=== PATIENT | female | born 1950 | race African-American/Black ===

== ENCOUNTER 2017-10-23 09:11 | Outpatient (CLI) | payer MEDICARE, MEDICAID | END 2017-10-23 09:12 | disposition home or self-care (01) | LOC: NS 09:11 | PROVIDERS: ATTEND Internal Medicine | DX: Z71.3 Dietary counseling and surveillance (principal); E11.9 Type 2 diabetes mellitus without complications; Z68.28 Body mass index [BMI] 28.0-28.9, adult | CPT/HCPCS: 97802 ==

== ENCOUNTER 2017-11-06 09:44 | Outpatient (CLI) | payer OTHER, MEDICAID | END 2017-11-06 09:45 | disposition home or self-care (01) | LOC: NS 09:44 | PROVIDERS: ATTEND Internal Medicine | DX: Z71.3 Dietary counseling and surveillance (principal); E11.9 Type 2 diabetes mellitus without complications; Z68.28 Body mass index [BMI] 28.0-28.9, adult; Z79.84 Long term (current) use of oral hypoglycemic drugs | CPT/HCPCS: 97803 ==

== ENCOUNTER 2018-03-15 11:53 | Outpatient (CLI) | payer MEDICARE, MEDICAID ==
--- NOTE | 2018-03-16 15:51 | Ultrasound Report ---
Reason: FOOT PAIN,CLAUDICATION Procedure Date: 03/15/2018 Accession Number: [id number] / [id number] Procedure: US - Duplex Lwr Ext Arterial Bilat CPT Code: FULL RESULT: EXAM: Bilateral Lower Extremity Arterial Doppler Ultrasound EXAM DATE: 03/15/2018 01:10 PM. CLINICAL HISTORY: FOOT Pain, claudication. COMPARISON: None. TECHNIQUE: Real-time sonographic vascular imaging was performed by the convertible sofa bedspring tester, utilizing color-flow, Doppler flow, and spectral analysis. Multiple employee representative static images were saved for review. FINDINGS: Peak systolic velocities in centimeters per second: PRECISION DYER right 94 left 74 Proximal SFA right 80 left 91 Mid SFA right 68 left 87 Distal SFA right 288 left 77 PFA right 78 left 64 Popliteal right 46 left 70 TJ right 18 left 16 BUNGY JUMP MASTER right 9 left 22 Peroneal right 45 left 39 DPA right 8 left 15 SHELLIE Right brachial 169/79. Right ankle 169/87. SHELLIE 1.0 Left brachial 160/72. Left ankle 165/80. SHELLIE 1.03 IMPRESSION: Normal ABIs Right superficial femoral artery high-grade stenosis RADIA
== END 2018-03-15 11:54 | disposition home or self-care (01) ==
LOC: DI 11:53
PROVIDERS: ATTEND Internal Medicine
DX: I70.213 Atherosclerosis of native arteries of extremities with intermittent claudication, bilateral legs (principal); M79.672 Pain in left foot
CPT/HCPCS: 93922; 93925

== ENCOUNTER 2018-05-01 10:09 | Outpatient (CLI) | payer MEDICARE, MEDICAID ==
[2018-05-01 12:36] LABS: HB2 TOTAL 13.3 g/dL; HEMOGLOBIN A1C 0.55 g/dL; HEMOGLOBIN A1C % 5.9 % (4.6-6.2)
== END 2018-05-01 10:10 | disposition home or self-care (01) ==
LOC: LAB 10:09
PROVIDERS: ATTEND Nurse Anesthetist, Certified Registered
DX: Z01.818 Encounter for other preprocedural examination (principal); G56.01 Carpal tunnel syndrome, right upper limb; I21.3 ST elevation (STEMI) myocardial infarction of unspecified site; E11.9 Type 2 diabetes mellitus without complications
CPT/HCPCS: 36415; 83036; 93005

== ENCOUNTER 2018-05-05 07:13 | Day surgery (SDC) | payer MEDICARE, MEDICAID ==
--- NOTE | 2018-05-05 07:51 | ANESTHESIA ---
Pre-Anesthesia VS, & Labs - Diagnosis B carpal tunnel syndrome - Procedure R CTR Vital Signs: Temp Pulse Resp BP Pulse Ox 37 C 71 15 180/85 H 98 05/05/18 07:25 05/05/18 07:25 05/05/18 07:25 05/05/18 07:25 05/05/18 07:25 Height 5 ft 3 in Weight (kg) 73.3 kg - NPO >8 hours - Is Patient ?: No - Lab Results Current Lab Results: Laboratory Tests 05/05/18 07:44: POC Whole Bld Glucose 107 H Lab results reviewed: Yes Home Medications and Allergies Home Medications: Ambulatory Orders Aspirin [Adult Aspirin] 81 mg PO DAILY 04/30/18 Atorvastatin Calcium [Lipitor] 80 mg PO QPM 04/30/18 Biotin 500 mcg PO DAILY 04/30/18 Cholecalciferol [Vitamin D3] 5,000 unit PO DAILY 04/30/18 Clopidogrel Bisulfate [Clopidogrel] 75 mg PO DAILY 04/30/18 Cyanocobalamin (Vitamin B-12) [Vitamin B-12] 500 mcg PO DAILY 04/30/18 Insulin NPH Hum/Reg Insulin Hm [Novolin 70-30 Flexpen] 20 unit SQ DAILY 04/30/18 Lactobacillus Acidophilus [Probiotic Acidophilus] 1 each PO DAILY 04/30/18 Lisinopril 40 mg PO BID 04/30/18 Multivitamin [Multiple Vitamins] 1 each PO DAILY 04/30/18 [place]-3/Dha/Epa/Fish Oil [Fish Oil 1,000 mg Softgel] 1 each PO DAILY 04/30/18 Pyridoxine HCl [Vitamin B-6] 100 mg PO ONCE 04/30/18 Turmeric Root Extract [Turmeric] 500 mg PO DAILY 04/30/18 Vitamin E 400 unit PO DAILY 04/30/18 metFORMIN [Glucophage] 500 mg PO DAILY 04/30/18 Aspirin [Adult Aspirin] 81 mg PO DAILY 04/30/18 Atorvastatin Calcium [Lipitor] 80 mg PO QPM 04/30/18 Biotin 500 mcg PO DAILY 04/30/18 Cholecalciferol [Vitamin D3] 5,000 unit PO DAILY 04/30/18 Clopidogrel Bisulfate [Clopidogrel] 75 mg PO DAILY 04/30/18 Cyanocobalamin (Vitamin B-12) [Vitamin B-12] 500 mcg PO DAILY 04/30/18 Insulin NPH Hum/Reg Insulin Hm [Novolin 70-30 Flexpen] 20 unit SQ DAILY 04/30/18 Lactobacillus Acidophilus [Probiotic Acidophilus] 1 each PO DAILY 04/30/18 Lisinopril 40 mg PO BID 04/30/18 Multivitamin [Multiple Vitamins] 1 each PO DAILY 04/30/18 [place]-3/Dha/Epa/Fish Oil [Fish Oil 1,000 mg Softgel] 1 each PO DAILY 04/30/18 Pyridoxine HCl [Vitamin B-6] 100 mg PO ONCE 04/30/18 Turmeric Root Extract [Turmeric] 500 mg PO DAILY 04/30/18 Vitamin E 400 unit PO DAILY 04/30/18 metFORMIN [Glucophage] 500 mg PO DAILY 04/30/18 Allergies/Adverse Reactions: Allergies Allergy/AdvReac Type Severity Reaction Status Date / Time No Known Drug Allergies Allergy Verified 04/30/18 13:23 Anes History & Medical History - Anesthetic History Anesthesia Complications: reports: No previous complications Family history of Anesthesia Complications: Denies Family history of Malignant Hyperthermia: Denies - Medical History Cardiovascular: reports: Hypertension, High cholesterol, [place], Murmur Pulmonary: reports: Shortness of breath Gastrointestinal: reports: None Urinary: reports: Nocturia Musculoskeletal: reports: None Endocrine/Autoimmune: reports: Type 2 diabetes Skin: reports: None Exam General: Alert, Oriented x3, Cooperative Mouth Openin Fingerbreadth Neck Mobility: Limited Mallampati classification: II Thyromental Distance: 4-6 cm Respiratory: Lungs clear, Normal breath sounds Cardiovascular: Regular rate Neurological: Normal speech Mental/Cognitive Status: Alert/Oriented X3 Plan Anesthesia Type: General Consent for Procedure(s) Verified and Reviewed: Yes Code Status: Attempt Resuscitation ASA classification: 3-Severe systemic disease Is this case an emergency?: No
[2018-05-05] MEDS ORDERED: BUPIVACAINE 0.25% PF 10 ML VIAL ONE (07:52)
[2018-05-05] MEDS ORDERED: LACTATED RINGERS 1,000 ML IV ONE ×2 (08:01→08:27)
[2018-05-05] MEDS ORDERED: BUPIVACAINE 0.25% PF 30 ML VIAL SUBQ ONE ×2 (08:25)
[2018-05-05] MEDS ORDERED: MIDAZOLAM 2 MG/2 ML VIAL IVP ONE (08:30)
[2018-05-05] MEDS ORDERED: DEXAMETHASONE 4 MG/ML VIAL IVP ONE (08:30)
[2018-05-05] MEDS ORDERED: ONDANSETRON 4 MG/2 ML VIAL IVP ONE (08:30)
[2018-05-05] MEDS ORDERED: KETOROLAC 30 MG/ML VIAL IVP ONE (08:30)
[2018-05-05] MEDS ORDERED: fentaNYL 100 MCG/2 ML VIAL IVP ONE (08:30)
[2018-05-05] MEDS ORDERED: LIDOCAINE-MPF 2% 5 ML VIAL IM ONE (08:30)
[2018-05-05] MEDS ORDERED: PROPOFOL 200 MG/20 ML VIAL IVP ONE (08:30)
[2018-05-05] MEDS ORDERED: ONDANSETRON 4 MG/2 ML VIAL IVP PRN (08:44)
[2018-05-05] MEDS ORDERED: HYDROcod/ACETAM 5/325 MG TABLET PO PRN (08:44)
[2018-05-05 09:59] VITALS: BP 165/87
--- NOTE | 2018-05-05 10:28 | OPERATIVE REPORT ---
DATE OF SERVICE: 05/05/2018 Physician: Elizabeth Fermin MD PREOPERATIVE DIAGNOSIS: Right carpal tunnel syndrome. POSTOPERATIVE DIAGNOSIS: Right carpal tunnel syndrome. PROCEDURE: Right carpal tunnel release. OPERATING SURGEON: Elizabeth Fermin MD ANESTHESIA: General. INDICATIONS FOR SURGERY: Patient is a 67-year-old with progressive bilateral carpal tunnel syndrome, who desires a right carpal tunnel release. She has had failure of nonoperative treatment and has a positive nerve conduction test. FINDINGS AT SURGERY: Patient's exposed median nerve revealed constriction through the carpal tunnel. Otherwise, there was no other abnormality in the tunnel. DESCRIPTION OF OPERATIVE PROCEDURE: The patient was taken to the operating room, given a general anesthetic. Her hand and arm were sterilely prepped and draped in standard fashion. The patient's hand had presurgically been marked, and a surgical timeout was held, after which the carpal tunnel was infiltrated with a combination of 1% lidocaine with epinephrine and 0.25% Marcaine, using approximately a total volume 8 mL. Once this was adequately anesthetized and the skin blanching somewhat, an incision was made 1 inch in length in the palm in line with the third webspace, with the radial border of the ring finger. This incision was taken through skin and subcutaneous tissue, dissecting down to the transverse carpal ligament, which was divided in line with the incision and the length of the division extending from the distal flexion crease of the wrist to the superficial vascular arch in the palm. The contents of the tunnel were examined and the constriction of the nerve noted. The area was flushed and irrigated and closed with 4-0 nylon interrupted. Sterile dressings were applied to the palm, and the patient was taken to the recovery room in stable condition. ESTIMATED BLOOD LOSS: Minimal. COMPLICATIONS: None. COUNTS: Sponge and needle counts correct. TD: 05/05/2018 09:25 [facility]
== END 2018-05-05 07:14 | disposition home or self-care (01) ==
LOC: SDS 07:13
PROVIDERS: ATTEND Orthopaedic Surgery
PROC: 01N50ZZ Release Median Nerve, Open Approach (ICD-10-PCS; principal; 2018-05-05 08:30)
DX: G56.03 Carpal tunnel syndrome, bilateral upper limbs (principal); E11.9 Type 2 diabetes mellitus without complications; I10 Essential (primary) hypertension; I69.398 Other sequelae of cerebral infarction; R20.2 Paresthesia of skin; I25.2 Old myocardial infarction; Z87.891 Personal history of nicotine dependence; Z79.82 Long term (current) use of aspirin; Z79.899 Other long term (current) drug therapy; Z79.4 Long term (current) use of insulin
CPT/HCPCS: 64721; J7120

== ENCOUNTER 2018-06-24 07:52 | Emergency (ER) | payer MEDICARE, MEDICAID ==
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
[2018-06-24 08:23] LABS: BASOPHILS # (AUTO) 0.1 10^3/uL (0.0-0.1); BASOPHILS % (AUTO) 0.7 %; EOSINOPHILS # (AUTO) 0.3 10^3/uL (0.0-0.7); EOSINOPHILS % (AUTO) 3.1 %; HGB - HEMOGLOBIN 12.5 g/dL (12.0-16.0); LYMPHOCYTES # (AUTO) 1.6 10^3/uL (1.5-3.5); LYMPHOCYTES % (AUTO) 16.3 %; MEAN CORPUSCULAR HEMOGLOBIN 29.4 pg (27.0-31.0); MEAN CORPUSCULAR VOLUME 89.2 fL (81.0-99.0); MONOCYTES # (AUTO) 0.5 10^3/uL (0.0-1.0); MONOCYTES % (AUTO) 4.5 %; NEUTROPHILS # (AUTO) 7.6 10^3/uL (1.5-6.6); NEUTROPHILS % (AUTO) 75.4 %; PLT - PLATELET COUNT 251 10^3/uL (130-450); RED BLOOD COUNT 4.24 10^6/uL (4.20-5.40); RED CELL DISTRIBUTION WIDTH 14.3 % (12.0-15.0); WHITE BLOOD COUNT 10.1 x10^3/uL (4.8-10.8)
[2018-06-24] MEDS ORDERED: SODIUM CHLORIDE 0.9% 1,000 ML IV ONE ×2 (08:29→09:16)
--- NOTE | 2018-06-24 08:30 | CT Report ---
Reason: ALOC Procedure Date: 06/24/2018 Accession Number: [id number] / [id number] Procedure: CT - HEAD WO CPT Code: FULL RESULT: EXAM: CT HEAD EXAM DATE: 06/24/2018 08:21 AM. CLINICAL HISTORY: Altered level of consciousness. COMPARISON: None. TECHNIQUE: Multiaxial CT images were obtained from the foramen magnum to the vertex. Reformats: Sagittal and coronal. IV contrast: None. In accordance with CT protocol optimization, one or more of the following dose reduction techniques were utilized for this exam: automated exposure control, adjustment of mA and/or KV based on patient size, or use of iterative reconstructive technique. FINDINGS: Parenchyma: No intraparenchymal hemorrhage. No evidence of mass, midline shift, or CT findings of acute infarction. Piedra-white differentiation is distinct. Diffuse chronic microangiopathic white matter changes are evident. Extraaxial Spaces: Normal for age. No subdural or epidural collections identified. Ventricles: The ventricles and cortical sulci are enlarged, consistent with age-related tissue loss. Sinuses and orbits: Imaged paranasal sinuses, orbits, and mastoids show no significant abnormality. Bones: No evidence of fracture or calvarial defect. Other: None. IMPRESSION: Generalized age-related cortical atrophic changes without evidence of acute intracranial abnormality. RAD[facility]
--- NOTE | 2018-06-24 08:37 | XRAY Report ---
Reason: chest pain Procedure Date: 06/24/2018 Accession Number: [id number] / [id number] Procedure: XR - Chest 1 View X-Ray CPT Code: 76668 FULL RESULT: EXAM: CHEST RADIOGRAPHY EXAM DATE: 06/24/2018 08:30 AM. CLINICAL HISTORY: Chest pain. COMPARISON: None. TECHNIQUE: 1 view. FINDINGS: Lungs/Pleura: Mildly elongated left basilar opacity. No pleural effusion. No pneumothorax. Mediastinum: Within exam limitations, the cardiomediastinal contour is normal. Other: Bilateral acromioclavicular joint degenerative changes with joint space narrowing and inferior marginal osteophytes. IMPRESSION: 1. Mild left basilar atelectasis. RADIA
[2018-06-24 08:40] LABS: ALBUMIN/GLOBULIN RATIO 1.3 (1.0-2.2); BILIRUBIN,TOTAL 0.5 mg/dL (0.2-1.0); CALCIUM 9.4 mg/dL (8.5-10.3); CREATININE 0.8 mg/dL (0.4-1.0)
[2018-06-24 09:29] LABS: BILIRUBIN,URINE NEGATIVE (NEGATIVE); GLUCOSE, URINE (UA) NEGATIVE (NEGATIVE); KETONES,URINE (UA) NEGATIVE (NEGATIVE); LEUKOCYTE ESTERASE, URINE NEGATIVE (NEGATIVE); NITRITE,URINE POSITIVE (NEGATIVE); OCCULT BLOOD,URINE SMALL (NEGATIVE); PH,URINE 5.5 PH (5.0-7.5); PROTEIN,URINE NEGATIVE (NEGATIVE); UROBILINOGEN,URINE 0.2 (NORMAL) E.U./dL (NORMAL)
[2018-06-24 09:43] LABS: CLARITY,URINE HAZY (CLEAR)
[2018-06-24 09:55] LABS: BACTERIA,URINE Moderate /HPF (None Seen); RBC,URINE 0-5 /HPF (0-5); SQUAMOUS EPITHELIAL CELL,UR FEW Squamous (<= Few)
[2018-06-24] MEDS ORDERED: cephALEXin 250 MG CAPSULE PO STA (10:00)
[2018-06-24 10:13] VITALS: BP 213/94
== END 2018-06-24 10:24 | disposition home or self-care (01) ==
LOC: ED 07:52
DX: E86.0 Dehydration (principal); N30.00 Acute cystitis without hematuria; R94.31 Abnormal electrocardiogram [ECG] [EKG]; E11.9 Type 2 diabetes mellitus without complications; Z79.4 Long term (current) use of insulin; E78.00 Pure hypercholesterolemia, unspecified; I10 Essential (primary) hypertension; I25.2 Old myocardial infarction; Z79.82 Long term (current) use of aspirin
CPT/HCPCS: 36415; 70450; 71045; 80053; 81001; 83690; 84484; 85025; 87086; 93005; 96360; 99284; A9270; 81003; 87077; 87181

== ENCOUNTER 2018-07-06 11:17 | Outpatient (CLI) | payer OTHER, MEDICARE, MEDICAID ==
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
== END 2018-07-06 11:18 | disposition home or self-care (01) ==
LOC: DI 11:17
PROVIDERS: ATTEND Chiropractor
DX: M47.9 Spondylosis, unspecified (principal); M43.13 Spondylolisthesis, cervicothoracic region
CPT/HCPCS: 72040; 72070; 72100

== ENCOUNTER 2018-07-17 10:32 | Outpatient (CLI) | payer MEDICARE, MEDICAID ==
--- NOTE | 2018-07-31 09:36 | Mammography Report ---
Reason: SCREENING MAMMO Procedure Date: 07/17/2018 Accession Number: [id number] / [id number] Procedure: MGN - Screening Mammo Dig Bilat CPT Code: FULL RESULT: EXAM: Screening Mammo Dig Bilat DATE: 07/17/2018 10:57 AM CLINICAL HISTORY: Routine screening TECHNIQUE: (B) - Bilateral CC and MLO views were obtained. COMPARISON: None PARENCHYMAL PATTERN: (A) - The breasts demonstrate scattered fibroglandular densities bilaterally. FINDINGS: Negative left breast. There are no suspicious masses, calcifications, or areas of distortion. Right retroareolar 1 cm nodule 1 cm posterior to the nipple. Tubular structure associated with large calcification 9:00 position 8 cm from the nipple for which ultrasound is suggested. No suspicious calcifications or architectural distortion right breast. IMPRESSION: Incomplete examination. BI-RADS category 0. Needs right breast ultrasound. Negative left breast. RECOMMENDATION: (ADDUS) - Targeted ultrasound recommended. Right breast retroareolar 1 cm from the nipple and 9:00 position 8 cm from the nipple. BI-RADS CATEGORY: (0) - Incomplete Examination - need additional evaluation. STANDARD QUALIFYING STATEMENTS: 1. This examination was not reviewed with the aid of Computer-Aided Detection (CAD). 2. A negative or benign imaging report should not preclude biopsy if clinically suspicious findings are present. 3. Dense breasts may obscure an underlying neoplasm. 4. This examination was reviewed without the aid of 3D breast imaging (tomosynthesis).
== END 2018-07-17 10:33 | disposition home or self-care (01) ==
LOC: DI.N 10:32
PROVIDERS: ATTEND Internal Medicine
DX: Z12.31 Encounter for screening mammogram for malignant neoplasm of breast (principal); R92.8 Other abnormal and inconclusive findings on diagnostic imaging of breast
CPT/HCPCS: 77067

== ENCOUNTER 2018-08-14 09:16 | Outpatient (CLI) | payer MEDICARE, MEDICAID ==
--- NOTE | 2018-08-14 09:56 | CT Report ---
Reason: MULTIPLE PULMONARY NODULES Procedure Date: 08/14/2018 Accession Number: [id number] / [id number] Procedure: CT - CHEST WO CPT Code: FULL RESULT: EXAM: CT CHEST EXAM DATE: 08/14/2018 09:27 AM. CLINICAL HISTORY: MULTIPLE PULMONARY NODULES. COMPARISONS: Chest x-ray 06/24/2018. TECHNIQUE: Routine helical CT imaging was performed through the chest. IV contrast: None. Reconstructions: Coronal and sagittal. In accordance with CT protocol optimization, one or more of the following dose reduction techniques were utilized for this exam: automated exposure control, adjustment of mA and/or KV based on patient size, or use of iterative reconstructive technique. FINDINGS: Lungs/Pleura: No nodules, bronchial thickening, consolidation, or edema. Pulmonary vasculature is normal. No pericardial or pleural effusion. No pneumothorax. Mediastinum: Normal. No adenopathy or masses. The heart and great vessels are normal. Bones: Unremarkable. Visualized Abdomen: Unremarkable. Other: None. IMPRESSION: Normal chest CT. RAD[facility]
== END 2018-08-14 09:17 | disposition home or self-care (01) ==
LOC: DI 09:16
PROVIDERS: ATTEND Internal Medicine
DX: R91.8 Other nonspecific abnormal finding of lung field (principal)
CPT/HCPCS: 71250

== ENCOUNTER 2019-01-11 11:28 | Outpatient (CLI) | payer MEDICARE, MEDICAID ==
[2019-01-11 12:34] LABS: CALCIUM 9.5 mg/dL (8.5-10.3); CREATININE 0.6 mg/dL (0.4-1.0)
[2019-01-11 13:23] LABS: HB2 TOTAL 12.5 g/dL; HEMOGLOBIN A1C 0.52 g/dL
== END 2019-01-11 11:29 | disposition home or self-care (01) ==
LOC: LAB 11:28
PROVIDERS: ATTEND Internal Medicine
DX: E11.9 Type 2 diabetes mellitus without complications (principal); R20.2 Paresthesia of skin; I10 Essential (primary) hypertension; E78.5 Hyperlipidemia, unspecified; Z79.899 Other long term (current) drug therapy
CPT/HCPCS: 36415; 80048; 82306; 83036; 84207

== ENCOUNTER 2019-03-12 10:44 | Outpatient (CLI) | payer MEDICARE, MEDICAID ==
--- NOTE | 2019-03-12 13:23 | XRAY Report ---
Reason: COUGH,HEMOPTYSIS Procedure Date: 03/12/2019 Accession Number: [id number] / [id number] Procedure: XR - Chest 2 View X-Ray CPT Code: 39408 Final Report FULL RESULT: EXAM: CHEST RADIOGRAPHY EXAM DATE: 03/12/2019 10:57 AM. CLINICAL HISTORY: COUGH,HEMOPTYSIS. COMPARISON: THORACIC SPINE 2 VIEW 07/06/2018 11:30 AM. TECHNIQUE: 2 views. FINDINGS: Lungs/Pleura: No focal opacities evident. No pleural effusion. No pneumothorax. Normal volumes. Mediastinum: Heart and mediastinal contours are unremarkable. Mild ectatic aorta Other: DJD spine IMPRESSION: No active cardiopulmonary disease RAD[facility]
== END 2019-03-12 10:45 | disposition home or self-care (01) ==
LOC: DI 10:44
PROVIDERS: ATTEND Internal Medicine
DX: R04.2 Hemoptysis (principal)
CPT/HCPCS: 71046

== ENCOUNTER 2019-09-24 10:15 | Outpatient (CLI) | payer MEDICARE, MEDICAID ==
[2019-09-24 10:37] LABS: BASOPHILS # (AUTO) 0.1 10^3/uL (0.0-0.1); BASOPHILS % (AUTO) 0.6 %; EOSINOPHILS # (AUTO) 0.1 10^3/uL (0.0-0.7); EOSINOPHILS % (AUTO) 1.6 %; HGB - HEMOGLOBIN 12.7 g/dL (12.0-16.0); LYMPHOCYTES # (AUTO) 2.2 10^3/uL (1.5-3.5); LYMPHOCYTES % (AUTO) 24.9 %; MEAN CORPUSCULAR HEMOGLOBIN 28.7 pg (27.0-31.0); MEAN CORPUSCULAR HGB CONC 31.2 g/dL (32.0-36.0); MEAN CORPUSCULAR VOLUME 91.9 fL (81.0-99.0); MEAN PLATELET VOLUME 9.5 fL (7.9-10.8); MONOCYTES # (AUTO) 0.4 10^3/uL (0.0-1.0); MONOCYTES % (AUTO) 4.9 %; NEUTROPHILS # (AUTO) 5.8 10^3/uL (1.5-6.6); NEUTROPHILS % (AUTO) 67.8 %; PLT - PLATELET COUNT 315 10^3/uL (130-450); RED BLOOD COUNT 4.43 10^6/uL (4.20-5.40); RED CELL DISTRIBUTION WIDTH 13.2 % (12.0-15.0); WHITE BLOOD COUNT 8.6 x10^3/uL (4.8-10.8)
[2019-09-24 10:56] LABS: CREATININE,URINE 93.3 mg/dL; MICROALBUM/CREATININE RATIO,UR 13.9 ug/mg (<30.0); MICROALBUMIN,URINE 1.3 mg/dL (0-300.0)
[2019-09-24 10:59] LABS: ALBUMIN 4.3 g/dL (3.2-5.5); ALBUMIN/GLOBULIN RATIO 1.3 (1.0-2.2); ALKALINE PHOSPHATASE 54 IU/L (42-121); ALT ALANINE AMINOTRANSFERASE 24 IU/L (10-60); AST ASPARTATE AMINOTRANSFERASE 22 IU/L (10-42); BILIRUBIN,TOTAL 0.9 mg/dL (0.2-1.0); BUN - BLOOD UREA NITROGEN 15 mg/dL (6-20); CALCIUM 9.5 mg/dL (8.5-10.3); CARBON DIOXIDE - CO2 29 mmol/L (21-32); CHLORIDE 104 mmol/L (101-111); CHOL/HDL RATIO 3.3 (<4.4); CHOLESTEROL 265 mg/dL; CREATININE 0.8 mg/dL (0.4-1.0); GLUCOSE 67 mg/dL (70-100); HDL CHOLESTEROL 81 mg/dL; LDL CHOLESTEROL,CALCULATED 162 mg/dL; SODIUM 140 mmol/L (135-145); TOTAL PROTEIN 7.6 g/dL (6.7-8.2); VLDL CHOLESTEROL 22 mg/dL
[2019-09-24 11:08] LABS: THYROID STIMULATING HORMONE 0.84 uIU/mL (0.34-5.60)
[2019-09-24 12:25] LABS: HB2 TOTAL 13.6 g/dL; HEMOGLOBIN A1C 0.51 g/dL; HEMOGLOBIN A1C % 5.6 % (4.6-6.2)
== END 2019-09-24 10:16 | disposition home or self-care (01) ==
LOC: LAB 10:15
PROVIDERS: ATTEND Internal Medicine
DX: G64 Other disorders of peripheral nervous system (principal); Z13.6 Encounter for screening for cardiovascular disorders; Z79.899 Other long term (current) drug therapy; I10 Essential (primary) hypertension; I63.9 Cerebral infarction, unspecified; G56.00 Carpal tunnel syndrome, unspecified upper limb; E11.9 Type 2 diabetes mellitus without complications; E78.5 Hyperlipidemia, unspecified; R10.9 Unspecified abdominal pain; I77.9 Disorder of arteries and arterioles, unspecified
CPT/HCPCS: 36415; 80053; 80061; 81599; 82043; 82306; 82570; 82607; 83036; 83721; 84443; 85025

== ENCOUNTER 2020-03-09 14:17 | Outpatient (CLI) | payer MEDICARE, MEDICAID ==
[2020-03-09 14:51] LABS: BASOPHILS # (AUTO) 0.1 10^3/uL (0.0-0.1); BASOPHILS % (AUTO) 0.7 %; EOSINOPHILS # (AUTO) 0.2 10^3/uL (0.0-0.7); EOSINOPHILS % (AUTO) 2.8 %; LYMPHOCYTES # (AUTO) 1.6 10^3/uL (1.5-3.5); LYMPHOCYTES % (AUTO) 18.4 %; MEAN CORPUSCULAR HEMOGLOBIN 29.1 pg (27.0-31.0); MEAN CORPUSCULAR HGB CONC 32.3 g/dL (32.0-36.0); MEAN CORPUSCULAR VOLUME 89.9 fL (81.0-99.0); MEAN PLATELET VOLUME 9.6 fL (7.9-10.8); MONOCYTES # (AUTO) 0.4 10^3/uL (0.0-1.0); MONOCYTES % (AUTO) 4.6 %; NEUTROPHILS # (AUTO) 6.3 10^3/uL (1.5-6.6); NEUTROPHILS % (AUTO) 73.3 %; PLT - PLATELET COUNT 279 10^3/uL (130-450); RED BLOOD COUNT 4.47 10^6/uL (4.20-5.40); RED CELL DISTRIBUTION WIDTH 13.5 % (12.0-15.0); WHITE BLOOD COUNT 8.6 x10^3/uL (4.8-10.8)
--- NOTE | 2020-03-09 14:58 | XRAY Report ---
PROCEDURE: Ankle 3 View LT INDICATIONS: LAB DRAW, LEFT ANKLE & HEEL PAIN TECHNIQUE: 3 views of the ankle were acquired. COMPARISON: None. FINDINGS: Bones: No significant degenerative changes. No fractures or dislocations. Ankle mortise is normally aligned. No suspicious bony lesions. Small plantar calcaneal enthesophyte. Soft tissues: No tibiotalar joint effusion. Achilles tendon appears normal. IMPRESSION: Small plantar calcaneal enthesophyte. Correlate for potential plantar fasciitis, low lik elihood given the lack of associated soft tissue swelling. Reviewed by: Hugo Jefferson MD on 03/09/2020 2:57 PM PST Approved by: Hugo Jefferson MD on 03/09/2020 2:57 PM PST Station ID: [id number]
[2020-03-09 15:04] LABS: CALCIUM 9.5 mg/dL (8.5-10.3); CREATININE 0.7 mg/dL (0.4-1.0)
[2020-03-09 18:59] LABS: HEMOGLOBIN A1c% 5.9 % (4.27-6.07)
== END 2020-03-09 14:18 | disposition home or self-care (01) ==
LOC: LAB 14:17 → DI 14:18
PROVIDERS: ATTEND Internal Medicine
DX: M25.572 Pain in left ankle and joints of left foot (principal); M77.32 Calcaneal spur, left foot; R06.09 Other forms of dyspnea; E11.9 Type 2 diabetes mellitus without complications; Z79.899 Other long term (current) drug therapy
CPT/HCPCS: 36415; 80048; 83036; 83880; 85025

== ENCOUNTER 2020-09-21 11:43 | Outpatient (CLI) | payer MEDICARE, MEDICAID ==
[2020-09-21 12:04] LABS: BASOPHILS # (AUTO) 0.1 10^3/uL (0.0-0.1); BASOPHILS % (AUTO) 0.7 %; EOSINOPHILS # (AUTO) 0.2 10^3/uL (0.0-0.7); EOSINOPHILS % (AUTO) 1.7 %; HCT - HEMATOCRIT 39.4 % (37.0-47.0); HGB - HEMOGLOBIN 12.7 g/dL (12.0-16.0); LYMPHOCYTES # (AUTO) 2.2 10^3/uL (1.5-3.5); LYMPHOCYTES % (AUTO) 24.7 %; MEAN CORPUSCULAR HEMOGLOBIN 29.1 pg (27.0-31.0); MEAN CORPUSCULAR HGB CONC 32.2 g/dL (32.0-36.0); MEAN CORPUSCULAR VOLUME 90.4 fL (81.0-99.0); MEAN PLATELET VOLUME 9.6 fL (7.9-10.8); MONOCYTES # (AUTO) 0.5 10^3/uL (0.0-1.0); MONOCYTES % (AUTO) 6.2 %; NEUTROPHILS # (AUTO) 5.8 10^3/uL (1.5-6.6); NEUTROPHILS % (AUTO) 66.5 %; PLT - PLATELET COUNT 273 10^3/uL (130-450); RED BLOOD COUNT 4.36 10^6/uL (4.20-5.40); RED CELL DISTRIBUTION WIDTH 13.5 % (12.0-15.0); WHITE BLOOD COUNT 8.7 x10^3/uL (4.8-10.8)
[2020-09-21 12:32] LABS: ALBUMIN 4.6 g/dL (3.2-5.5); ALBUMIN/GLOBULIN RATIO 1.4 (1.0-2.2); ALKALINE PHOSPHATASE 55 IU/L (42-121); ALT ALANINE AMINOTRANSFERASE 23 IU/L (10-60); AST ASPARTATE AMINOTRANSFERASE 21 IU/L (10-42); BILIRUBIN,TOTAL 0.7 mg/dL (0.2-1.0); BUN - BLOOD UREA NITROGEN 15 mg/dL (6-20); CARBON DIOXIDE - CO2 28 mmol/L (21-32); CHLORIDE 106 mmol/L (101-111); CHOLESTEROL 290 mg/dL; CREATININE 0.6 mg/dL (0.4-1.0); GFR - MDRD 120 (>89); GLUCOSE 63 mg/dL (70-100); HDL CHOLESTEROL 73 mg/dL; LDL CHOLESTEROL,CALCULATED 195 mg/dL; LDL/HDL RATIO 2.7 (<4.4); POTASSIUM 3.5 mmol/L (3.5-5.0); SODIUM 145 mmol/L (135-145); TRIGLYCERIDES 109 mg/dL; VLDL CHOLESTEROL 22 mg/dL
[2020-09-21 12:33] LABS: THYROID STIMULATING HORMONE 0.54 uIU/mL (0.34-5.60)
[2020-09-21 13:14] LABS: ESTIMATED AVERAGE GLUCOSE 120 mg/dL (70-100); HEMOGLOBIN A1c% 5.8 % (4.27-6.07)
== END 2020-09-21 11:44 | disposition home or self-care (01) ==
LOC: LAB 11:43
PROVIDERS: ATTEND Internal Medicine
DX: R53.83 Other fatigue (principal); Z79.899 Other long term (current) drug therapy; I10 Essential (primary) hypertension; E11.9 Type 2 diabetes mellitus without complications; E78.5 Hyperlipidemia, unspecified; Z13.6 Encounter for screening for cardiovascular disorders; K62.5 Hemorrhage of anus and rectum; I77.9 Disorder of arteries and arterioles, unspecified; I63.9 Cerebral infarction, unspecified
CPT/HCPCS: 36415; 80053; 80061; 82306; 82607; 83036; 83721; 84443; 85025

== ENCOUNTER 2020-10-25 08:24 | Outpatient (CLI) | payer MEDICARE, MEDICAID ==
--- NOTE | 2020-10-25 12:23 | DEXA Report ---
PROCEDURE: Dexa Spine and/or Hip INDICATIONS: POST MENOPAUSAL TECHNIQUE: Dual energy x-ray absorptiometry (DXA) was performed on a [email or web address] System. Regions measur ed are the AP Spine, femoral neck, and if needed forearm. COMPARISON: None. FINDINGS: Lumbar Spine: Bone Mineral Density 1.616 g/cm/cm,T score 3.6, normal Left Hip: Bone Mineral Density 1.078 g/cm/cm,T score 0.6, normal Left Femoral Neck: Bone Mineral Density 0.949 g/cm/cm, T score -0.6, normal (T score greater or equal to -1.0: NORMAL) (T score from -1.1 to -2.4: OSTEOPENIA) (T score less than or equal to -2.5 to: OSTEOPOROSIS) Impression: Normal bone mineral density. Patients with diagnosis of osteoporosis or osteopenia should have regular bone mineral density assess ment. For those eligible for Medicare, routine testing is allowed once every 2 years. Testing frequ ency can be increased for patients who have rapidly progressing disease or for those who are receivin g medical therapy to restore bone mass. Reviewed by: Ara Salcedo MD on 10/25/2020 12:21 PM PDT Approved by: Ara Salcedo MD on 10/25/2020 12:21 PM PDT Station ID: [id number]
== END 2020-10-25 08:25 | disposition home or self-care (01) ==
LOC: DI 08:24
PROVIDERS: ATTEND Internal Medicine
DX: Z78.0 Asymptomatic menopausal state (principal)

== ENCOUNTER 2020-10-25 08:25 | Outpatient (CLI) | payer MEDICARE, MEDICAID ==
--- NOTE | 2020-10-26 13:25 | Ultrasound Report ---
LIMITED ULTRASOUND OF RIGHT BREAST: 10/25/2020 CLINICAL: Patient returns today to evaluate an asymmetries in the right breast. Comparison is made to exams dated: 10/25/2020 mammogram, 07/17/2018 mammogram - [facility], 07/07/2015 ultrasound, and 06/19/2015 mammogram - [facility]. Color flow and real-time ultrasound of the right breast 7-9 o'clock, and retroareolar regions were pe rformed. Piedra scale images of the real-time examination were reviewed. There are multiple dilated ducts in the right breast central to the nipple in the retroareolar region . These dilated ducts display no posterior acoustic shadowing or enhancement. Color flow imaging de monstrates that there is no increase in vascularity. There also is a 0.3 cm round cyst with a smooth internal wall in the right breast at 9 o'clock [employer] ior depth 9 cm from the nipple. This round cyst is hypoechoic with an abrupt boundary and no posteri or acoustic shadowing or enhancement. Additionally, there is a 0.8 cm oval mass in the right breast at 7 o'clock posterior depth 8 cm from the nipple. This oval mass is hypoechoic with fatty hilum and no posterior acoustic shadowing or enh ancement. IMPRESSION: PROBABLY BENIGN The multiple dilated ducts in the right breast central to the nipple in the retroareolar region most likely are duct ectasia and are probably benign. A follow-up ultrasound in 6 months is recommended. The 0.3 cm round cyst in the right breast at 9 o'clock posterior depth is probably benign. A follow- up ultrasound in 6 months is recommended. The 0.8 cm oval mass in the right breast at 7 o'clock posterior depth most likely is a lymph node or a fibroadenoma and is probably benign. A follow-up ultrasound in 6 months is recommended. A follow-up ultrasound in 6 months is recommended to demonstrate stability. This exam was interpreted at Station ID: [id number]. Electronically Signed By: Hugo Jefferson M.D., jr/joshua:10/25/2020 10:28:37 Ultrasound BI-RADS: 3 Probably benign BI-RADS CATEGORY: (3) - 3 Ultrasound [id number] 6 month follow-up LATERALITY: (B)
--- NOTE | 2020-10-26 13:25 | Mammography Report ---
BILATERAL DIGITAL DIAGNOSTIC MAMMOGRAM 3D/2D: 10/25/2020 CLINICAL: Patient returns for sonographic evaluation of right breast mass. Comparison is made to exams dated: 07/17/2018 mammogram - [facility], 07/07/2015 [facility], and 06/19/2015 mammogram - [facility] The tissue of both breasts is predomin antly fatty. There are small asymmetries in the right breast central to the nipple in the retroareolar region with an associated, unchanged from prior studies and likely representing dilated ducts although this is n ot definitive. There also is a 0.3 cm focal asymmetry in the right breast at 7 o'clock posterior depth 9 cm from the nipple, likely a cyst or lymph node. Additionally, there is a 0.8 cm mass in the right breast at 8 o'clock posterior depth 8 cm from the n ipple, likely a lymph node or fibroadenoma. No other significant masses, calcifications, or other findings are seen in either breast. IMPRESSION: INCOMPLETE: NEEDS ADDITIONAL IMAGING EVALUATION Focal asymmetries in the retroareolar region and two masses/focal asymmetries in the lower outer quad rant. These are stable from remote exams but further evaluation is recommended and will be performed following this exam. This exam was interpreted at Station ID: [id number]. NOTE: For mammograms, a report in lay terms will be sent to the patient. Approximately 15% of breast malignancies will not be visualized mammographically. In the management of a palpable breast mass, a negative mammogram must not discourage biopsy of a clinically suspicious lesion. Electronically Signed By: Hugo Jefferson M.D. jr/:10/25/2020 10:31:23 ACR BI-RADS Category 0: Incomplete 3340F PARENCHYMAL PATTERN: (F) - The breast(s) demonstrate(s) diffuse fatty replacement. BI-RADS CATEGORY: (0) - 0 Ultrasound [id number] Immediate follow-up LATERALITY: (B)
== END 2020-10-25 08:26 | disposition home or self-care (01) ==
LOC: DI 08:25
PROVIDERS: ATTEND Internal Medicine
DX: N60.01 Solitary cyst of right breast (principal); N63.13 Unspecified lump in the right breast, lower outer quadrant; Z78.0 Asymptomatic menopausal state

== ENCOUNTER 2020-11-16 13:41 | Outpatient (CLI) | payer MEDICARE, MEDICAID ==
--- NOTE | 2020-11-16 17:19 | Ultrasound Report ---
PROCEDURE: Ext Limited Non Vascular INDICATIONS: RT LOWER LEG PAINFUL LUMP TECHNIQUE: Real-time scanning was performed of the right lateral ankle, with image documentation. COMPARISON: None. FINDINGS: Multiple grayscale and color Doppler images of the lateral aspect of the right ankle were acquired at the patient directed area of palpable concern. Within the lateral aspect of the right ank le approximately 7 cm proximal to the lateral malleolus, there is a wider than tall hypoechoic lesion measuring 3.0 x 0.4 x 2.4 cm. It is heterogeneously hypoechoic without internal vascularity. There i s overlying subcutaneous edema. This hypoechoic lesion is parallel to the long axis of the lower leg. It is seen immediately superficial to the fascial layer of the underlying musculature. The lateral a nkle musculature appear normal in sonographic appearance. IMPRESSION: [place], wider than tall hypoechoic mass over the lateral aspect of the right ankle with overlying sof t tissue edema measures 3.0 x 0.4 x 2.4 cm. It is avascular. This may represent a possible hematoma o r other complicated fluid collection. Avascular mass not excluded. Findings are nonspecific and diffe rential would include both benign and malignant etiologies. Recommend clinical correlation/follow-up and repeat imaging as needed. Reviewed by: Yohan Cordoba MD on 11/16/2020 5:18 PM PDT Approved by: Yohan Cordoba MD on 11/16/2020 5:18 PM PDT Station ID: [id number]
== END 2020-11-16 13:42 | disposition home or self-care (01) ==
LOC: DI 13:41
PROVIDERS: ATTEND Internal Medicine
DX: R22.40 Localized swelling, mass and lump, unspecified lower limb (principal)

== ENCOUNTER 2020-11-30 10:59 | Outpatient (CLI) | payer MEDICARE, MEDICAID ==
[2020-11-30 11:23] LABS: CREATININE 0.7 mg/dL (0.4-1.0)
[2020-11-30] MEDS ORDERED: IOVERSOL 320 100 ML VIAL IVP ONE ×2 (11:52→15:00)
--- NOTE | 2020-11-30 17:48 | CT Report ---
PROCEDURE: LOWER EXTREMITY W - RT INDICATIONS: RIGHT ANKLE MASS TECHNIQUE: [address] images of right ankle and hindfoot were obtained after IV contrast infusion. Coronal and sagittal reformats were obtained and reviewed. COMPARISON: Ultrasound of right ankle dated 11/16/2020 FINDINGS: Bones and joints: There is no fracture or dislocation. Mild ankle and hindfoot joint osteoarthritic changes are seen. N o suspicious intraosseous lesion. Ankle mortise is congruent. Small plantar and dorsal calcaneal enth esophytes are seen. Soft tissues: At patient's reported area of palpable lump along posterior lateral aspect of mid lower leg, there is a elongated hypodense area within soft tissue superficial to the adjacent peroneus muscle and measur es approximately 1.4 x 0.4 x 1.8 cm in size. Previous ultrasound evaluation shows 3 x 0.4 x 2.4 cm co llection in this area. Mild surrounding fat stranding is seen. No underlying muscle involvement. No o ther soft tissue mass or fluid collection is seen. There is no internal or peripheral contrast enhanc ement associated with this collection. No abnormal intramuscular enhancement is seen. IMPRESSION: 1. 1.4 x 0.4 x 1.8 cm elongated collection within soft tissue along posterior lateral aspect of mid l ower leg superficial to the peroneus muscles decreased in size since previous ultrasound study and sh ow no internal or peripheral contrast enhancement. Finding is most consistent with resolving hematoma in this area. Continued clinical and sonographic follow-up is recommended. 2. No area of abnormal soft tissue enhancement. 3. No suspicious intraosseous lesion. Right ankle and hindfoot joint osteoarthritis. No fracture or d islocation. Reviewed by: Miguelito Darden MD on 11/30/2020 5:47 PM PDT Approved by: Miguelito Darden MD on 11/30/2020 5:47 PM PDT Station ID: [id number]
== END 2020-11-30 11:00 | disposition home or self-care (01) ==
LOC: LAB 10:59
PROVIDERS: ATTEND Internal Medicine
DX: Z79.899 Other long term (current) drug therapy (principal); R93.6 Abnormal findings on diagnostic imaging of limbs; R93.89 Abnormal findings on diagnostic imaging of other specified body structures; M19.071 Primary osteoarthritis, right ankle and foot
CPT/HCPCS: 36415; 73701; 82565; Q9967

== ENCOUNTER 2021-01-30 06:32 | Observation (INO) | payer MEDICARE, MEDICAID ==
[2021-01-30] MEDS ORDERED: LACTATED RINGERS 1,000 ML IV ONE ×2 (06:35→08:39)
[2021-01-30] MEDS ORDERED: PROPOFOL 500 MG/50 ML 500 MG/50 ML VIAL ONE (07:10)
[2021-01-30] MEDS ORDERED: LIDOCAINE-MPF 2% 5 ML VIAL ONE (07:10)
--- NOTE | 2021-01-30 07:23 | ANESTHESIA ---
Pre-Anesthesia VS, & Labs - Diagnosis rectal bleeding - Procedure colonoscopy Vital Signs: Temp Pulse Resp BP Pulse Ox 36.2 C L 82 18 181/83 H 95 01/30/21 06:36 01/30/21 06:36 01/30/21 06:36 01/30/21 06:36 01/30/21 06:36 Height: 5 ft 2 in Weight (kg): 74 kg Body Mass Index: 29.8 BMI Classification: Overweight - NPO >8 hours - Is Patient ?: No - Lab Results Current Lab Results: Laboratory Tests 01/30/21 06:55: POC Whole Bld Glucose 111 H Home Medications and Allergies Aspirin [Adult Aspirin] 81 mg PO DAILY 04/30/18 Atorvastatin Calcium [Lipitor] 80 mg PO QPM 04/30/18 Biotin 500 mcg PO DAILY 04/30/18 Cholecalciferol [Vitamin D3] 5,000 unit PO DAILY 04/30/18 Clopidogrel Bisulfate [Clopidogrel] 75 mg PO DAILY 04/30/18 Cyanocobalamin (Vitamin B-12) [Vitamin B-12] 500 mcg PO DAILY 04/30/18 Insulin NPH Hum/Reg Insulin Hm [Novolin 70-30 Flexpen] 20 unit SQ DAILY 04/30/18 Lactobacillus Acidophilus [Probiotic Acidophilus] 1 each PO DAILY 04/30/18 Multivitamin [Multiple Vitamins] 1 each PO DAILY 04/30/18 [place]-3/Dha/Epa/Fish Oil [Fish Oil 1,000 mg Softgel] 1 each PO DAILY 04/30/18 Pyridoxine HCl (Vitamin B6) [Vitamin B-6] 100 mg PO ONCE 04/30/18 Turmeric Root Extract [Turmeric] 500 mg PO DAILY 04/30/18 Vitamin E 400 unit PO DAILY 04/30/18 lisinopriL [Lisinopril] 40 mg PO BID 04/30/18 metFORMIN [Glucophage] 500 mg PO DAILY 04/30/18 Allergies/Adverse Reactions: Allergies Allergy/AdvReac Type Severity Reaction Status Date / Time No Known Drug Allergies Allergy Verified 06/24/18 08:04 Anes History & Medical History - Anesthetic History Anesthesia Complications: reports: No previous complications - Medical History Cardiovascular: reports: Hypertension, High cholesterol, AR, Murmur Pulmonary: reports: Shortness of breath Gastrointestinal: reports: None Urinary: reports: Nocturia Neuro: reports: CVA Musculoskeletal: reports: None Endocrine/Autoimmune: reports: Type 2 diabetes Skin: reports: None Smoking Status: Former smoker History of Cancer?: No - Surgical History Orthopedic: reports: Carpal Tunnel surgery Exam General: Alert Dental: WNL Mouth Opening: Greater than 4 Fingerbreadths Neck Mobility: Normal Mallampati classification: II Thyromental Distance: greater than 6 cm Respiratory: Lungs clear Cardiovascular: Regular rate Plan Anesthesia Type: Total IV Consent for Procedure(s) Verified and Reviewed: Yes Code Status: Attempt Resuscitation ASA classification: 3-Severe systemic disease Is this case an emergency?: No
[2021-01-30] MEDS ORDERED: GLYCOPYRROLATE 1 MG/5 ML VIAL ONE (08:33)
--- NOTE | 2021-01-30 10:42 | ANESTHESIA POST OP EVALUATION ---
Anesthesia Post Eval - Post Anesthesia Eval Vitals: Last Vital Signs Temp 36.4 C L 01/30/21 10:27 Pulse 96 01/30/21 10:27 Resp 17 01/30/21 10:27 BP 182/94 H 01/30/21 10:27 Pulse Ox 100 01/30/21 10:27 CV Function Including HR & BP: Additional Therapies Ordered (Patient had profound episode of bradycardia during procedure. Admitted per hospitalist post op) Pain Control: Satisfactory Nausea & Vomiting: Negative Mental Status: Baseline Respiratory Status: Airway Patent Hydration Status: Satisfactory Anesthesia Complications: None
[2021-01-30] MEDS ORDERED: SODIUM CHLORIDE FLUSH 0.9% 10 ML SYRINGE IVP PRN (10:55)
[2021-01-30] MEDS ORDERED: ACETAMINOPHEN 325 MG TABLET PO PRN (10:55)
[2021-01-30] MEDS ORDERED: ONDANSETRON 4 MG/2 ML VIAL IVP PRN (10:55)
[2021-01-30] MEDS ORDERED: SODIUM CHLORIDE 0.9% 1,000 ML IV SCH (11:00)
[2021-01-30 11:19] LABS: BASOPHILS # (AUTO) 0.1 10^3/uL (0.0-0.1); BASOPHILS % (AUTO) 0.5 %; EOSINOPHILS # (AUTO) 0.2 10^3/uL (0.0-0.7); EOSINOPHILS % (AUTO) 1.8 %; HCT - HEMATOCRIT 40.1 % (37.0-47.0); HGB - HEMOGLOBIN 12.9 g/dL (12.0-16.0); LYMPHOCYTES # (AUTO) 1.7 10^3/uL (1.5-3.5); LYMPHOCYTES % (AUTO) 18.1 %; MEAN CORPUSCULAR HEMOGLOBIN 28.8 pg (27.0-31.0); MEAN CORPUSCULAR HGB CONC 32.2 g/dL (32.0-36.0); MEAN CORPUSCULAR VOLUME 89.5 fL (81.0-99.0); MEAN PLATELET VOLUME 9.8 fL (7.9-10.8); MONOCYTES # (AUTO) 0.4 10^3/uL (0.0-1.0); MONOCYTES % (AUTO) 4.7 %; NEUTROPHILS # (AUTO) 6.8 10^3/uL (1.5-6.6); NEUTROPHILS % (AUTO) 74.6 %; PLT - PLATELET COUNT 294 10^3/uL (130-450); RED BLOOD COUNT 4.48 10^6/uL (4.20-5.40); RED CELL DISTRIBUTION WIDTH 13.2 % (12.0-15.0); WHITE BLOOD COUNT 9.1 x10^3/uL (4.8-10.8)
[2021-01-30 11:25] LABS: INR 1.1 (0.8-1.2); PT - PROTHROMBIN TIME 12.1 secs (9.9-12.6)
[2021-01-30 11:29] LABS: ALBUMIN 4.1 g/dL (3.2-5.5); ALBUMIN/GLOBULIN RATIO 1.2 (1.0-2.2); BILIRUBIN,TOTAL 0.3 mg/dL (0.2-1.0); CALCIUM 9.9 mg/dL (8.5-10.3); CREATININE 0.7 mg/dL (0.4-1.0); POTASSIUM 3.9 mmol/L (3.5-5.0); TOTAL PROTEIN 7.4 g/dL (6.7-8.2)
[2021-01-30 11:32] LABS: D-DIMER 265.7 ng/mL (200.0-255.0)
[2021-01-30] MEDS ORDERED: SODIUM CHLORIDE 0.9% 1,000 ML IV ONE (11:39)
--- NOTE | 2021-01-30 12:24 | HISTORY & PHYSICAL EXAMINATION ---
Chief Complaint - Chief Complaint Chief Complaint: Bradycardia and complete heart block in OR during colonoscopy History of Present Illness - Admitted From Admitted From:: PACU - History Obtained From History obtained from: Angela Simpson (Anesthesia) and the patient - History of Present Illness HPI Comment/Other: This is a 70-year-old black female with a history of diabetes on insulin for the past 7 to 8 years, history of old NC and stroke about 3 years ago and hypertens ion. Patient has had rectal bleeding and was scheduled to undergo colonoscopy with polypectomy, approximately a week ago, but she awoke with a low morning glucose of 56 and the colonoscopy was postponed in order for her to eat. Today she did undergo the colonoscopy, because it was rescheduled. In the operating room, during the procudure, she developed recurrent episodes of marked bradycardia and then complete heart block twice (where P waves were present but no QRS's present) creating asystole with pauses of greater than 5 seconds. The colonoscopy was completed as scheduled however, and the patient was transferred to the PACU. A consultation has been requested for management from the spitalist team. The patient is still groggy but able to give me a answers slowly and coherently but falls back asleep easily. She claims she is on no heart medicines, specifically no heart rate slowing medications. She says she does not see a Coin Machine Servicer Repairer. There was no stenting done with her coronary angiogram which was done in [place]. She does report 3 episodes of syncope in her life, the most recent was about 7 to 8 years ago and she does not think she was seen in an ER with that. History - Past Medical History Cardiovascular: reports: Hypertension, High cholesterol, NC, Murmur (Murmur since childhood, she reports) Respiratory: reports: Shortness of breath Neuro: reports: CVA Endocrine/Autoimmune: reports: Type 2 diabetes GI: reports: None : reports: Nocturia HEENT: reports: Chronic vision loss, Chronic hearing loss Psych: reports: None Musculoskeletal: reports: None Derm: reports: None MRSA Hx?: No - Past Surgical History General: reports: Colonoscopy (today, results not known to me) Ortho: reports: Carpal Tunnel surgery Cardiovascular: reports: Cardiac catheterization - Family & Social History Living arrangement: At home Living Situation: With family (She lives with her son and [id number]) Social History Notes: 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 She does not smoke. She does not drink alcohol. No recreational drug use history. - Substance History Use: Uses substance without health or social issues: NONE - POLST Patient has POLST: No Meds/Allgy - Home Medications Home Medications: Ambulatory Orders Medication Instructions Recorded Confirmed Aspirin [Adult Aspirin] 81 mg PO DAILY 04/30/18 01/30/21 Atorvastatin Calcium [Lipitor] 80 mg PO QPM 04/30/18 01/30/21 Biotin 500 mcg PO DAILY 04/30/18 01/30/21 Cholecalciferol [Vitamin D3] 5,000 unit PO DAILY 04/30/18 01/30/21 Clopidogrel Bisulfate [Clopidogrel] 75 mg PO DAILY 04/30/18 01/30/21 Cyanocobalamin (Vitamin B-12) 500 mcg PO DAILY 04/30/18 01/30/21 [Vitamin B-12] Insulin NPH Hum/Reg Insulin Hm 20 unit SQ DAILY 04/30/18 01/30/21 [Novolin 70-30 Flexpen] Lactobacillus Acidophilus 1 each PO DAILY 04/30/18 01/30/21 [Probiotic Acidophilus] Multivitamin [Multiple Vitamins] 1 each PO DAILY 04/30/18 01/30/21 [place]-3/Dha/Epa/Fish Oil [Fish Oil 1 each PO DAILY 04/30/18 01/30/21 1,000 mg Softgel] Pyridoxine HCl (Vitamin B6) 100 mg PO ONCE 04/30/18 01/30/21 [Vitamin B-6] Turmeric Root Extract [Turmeric] 500 mg PO DAILY 04/30/18 01/30/21 Vitamin E 400 unit PO DAILY 04/30/18 01/30/21 lisinopriL [Lisinopril] 40 mg PO BID 04/30/18 01/30/21 metFORMIN [Glucophage] 500 mg PO DAILY 04/30/18 01/30/21 cephALEXin [Keflex] 500 mg PO Q6H #20 capsule 06/24/18 01/23/21 - Allergies Allergies/Adverse Reactions: Allergies Allergy/AdvReac Type Severity Reaction Status Date / Time No Known Drug Allergies Allergy Verified 06/24/18 08:04 Review of Systems - Cardiovascular Cariovascular: reports: Syncope (3 episodes in her life, cause not known) - Gastrointestinal Gastrointestinal: reports: Bloody stools - All Other Systems All Other Systems: reports: Reviewed and negative Exam - Vital Signs Reviewed Vital Signs: Yes Vital Signs: Vital Signs x48h Temp Pulse Pulse Resp BP BP Pulse Ox 01/30/21 12:01 36.9 C 88 18 171/94 H 98 01/30/21 11:36 97 22 187/96 H 100 01/30/21 11:13 92 13 175/90 H 100 01/30/21 10:46 96 16 187/95 H 100 01/30/21 10:27 36.4 C L 96 17 182/94 H 100 01/30/21 10:18 95 13 97 01/30/21 10:01 102 H 21 155/91 H 100 01/30/21 09:46 91 11 L 165/88 H 97 01/30/21 09:32 92 12 142/79 H 98 01/30/21 09:17 95 13 168/91 H 100 01/30/21 09:10 95 11 L 162/83 H 100 01/30/21 09:00 97 12 146/89 H 100 01/30/21 08:56 36.4 C L 96 11 L 126/85 H 100 01/30/21 08:51 98 13 143/83 H 100 01/30/21 08:46 101 H 15 127/83 H 99 01/30/21 08:41 98 15 117/68 99 01/30/21 08:37 36.2 C L 99 14 106/52 L 100 01/30/21 06:36 36.2 C L 82 18 181/83 H 95 - Physical Exam General Appearance: positive: No acute distress, Lethargic (being seen in PACU and had sedsation for her colonoscopy) Eyes Bilateral: positive: Normal inspection, PERRL ENT: positive: ENT inspection nml, No signs of dehydration Neck: positive: Nml inspection, No JVD Respiratory: positive: No respiratory distress, Breath sounds nml Cardiovascular: positive: Regular rate & rhythm, No murmur Abdomen: positive: Non-tender, Nml bowel sounds Skin: positive: Warm, Dry Extremities: positive: Non-tender, No pedal edema Neurologic/Psychiatric: positive: Oriented x3 (Lethargic, non-focal) Conclusion/Plan - Problem List (1) Complete heart block, transient Conclusion/Plan: The impression of the Anesthesiologist on the case, was that she had increased vagal tone since this occurred during colonoscopy with colon insufflation. We will place the patient in Observation status, on telemetry. Check troponins x2 to rule out an NC as the cause of the dario-arrhythmia. Obtain an Echo to evaluate for structural heart disease. Avoid heart rate slowing medications. Check TSH It would be helpful to obtain records from her remote catheterization or any remote syncope work-up, if the details are known, from her PCP. (2) Type 2 diabetes mellitus Conclusion/Plan: Will order a carb controlled diet, sliding scale insulin to cover fingerstick check glucose results and morning A1c. We will re-start her usual long-acting insulin tomorrow (3) Old NC (myocardial infarction) Conclusion/Plan: This Dx is according to Anesthesia. The patient confirms she had a "heart attack" and remembers having an angiogram 7-8 yrs ago but claims she is not on B-jhonny post-NC and denies having a Coin Machine Servicer Repairer. Therefore, the diagnosis of old NC is questionalble unless confirmed by records (?from PCP). Will continue her usual statin evening dose. Will not order her home anti-platelet meds until OKd by the surgeon, in case a biopsy was done. Will request a consult from Dr Ramirez. (4) Hypertension Conclusion/Plan: Will order her usual JESSEE, with parameters to hold it. Qualifiers: Hypertension type: unspecified Qualified Code(s): I10 - Essential (primary) hypertension - Lab Results Fish Bones: 01/30/21 11:10 01/30/21 11:10 - EKG Results EKG Interpreted Independently: Yes EKG Comparison: Unchanged from prior EKG EKG Findings: NSR, lateral T wave abnormality. Similar to EKG from 06/2018.
--- NOTE | 2021-01-30 12:56 | PHARMACY PROGRESS NOTE ---
- Best Possible Medication History Admit Date and Time: 01/30/21 1055 Processed by: Nursing As the person ultimately responsible for medication therapy, providers are able to order a medication from an existing home medication list in [facility] via the "Reconcile Routine" prior to Confirmation of that medication by technical support assistant. Such practice is discouraged except when the physician, in their clinical judgment, deems that a medical need exists for a medication without regard to previous use.
[2021-01-30] MEDS: lisinopriL 20 MG TABLET PO SCH ×2 (13:19→21:00)
[2021-01-30 13:24] LABS: B. PARAPERTUSSIS- RESP PCR PAN NOT DETECTED; B. PERTUSSIS- RESP PCR PANEL NOT DETECTED; C. PNEUMONIAE- RESP PCR PANEL NOT DETECTED; CORONAVIRUS 229E-RESP PCR NOT DETECTED; CORONAVIRUS HKU1-RESP PCR NOT DETECTED; CORONAVIRUS NL63-RESP PCR NOT DETECTED; CORONAVIRUS OC43-RESP PCR NOT DETECTED; HUMAN METAPNEUMOVIRUS NOT DETECTED; INFLUENZA A- RESP PCR PANEL NOT DETECTED; INFLUENZA B - RESP PCR PANEL NOT DETECTED; M. PNEUMONIAE- RESP PCR PANEL NOT DETECTED; PARAINFLUENZA VIRUS 1 NOT DETECTED; PARAINFLUENZA VIRUS 2 NOT DETECTED; PARAINFLUENZA VIRUS 3 NOT DETECTED; PARAINFLUENZA VIRUS 4 NOT DETECTED; RHINOVIRUS/ENTEROVIRUS NOT DETECTED; RSV- RESP PCR PANEL NOT DETECTED; SARS-CoV-2 -RESP PCR PANEL NOT DETECTED
[2021-01-30] MEDS: SODIUM CHLORIDE FLUSH 0.9% 10 ML SYRINGE IVP SCH (16:07)
[2021-01-30] MEDS: INSULIN ASPART 300 UNIT/3 ML PEN SUBQ SCH ×2 (16:40→21:00)
[2021-01-30] MEDS ORDERED: INSULIN 70/30 HUMAN 300 UNIT/3 ML VIAL SUBQ SCH (21:00)
[2021-01-30] MEDS ORDERED: ATORVASTATIN 40 MG TABLET PO SCH (21:00)
[2021-01-30] MEDS ORDERED: LORazepam 2 MG/ML VIAL IVP STA (21:47)
[2021-01-30] MEDS ORDERED: LORazepam 2 MG/ML VIAL ONE (21:52)
[2021-01-30 22:21] LABS: BASOPHILS # (AUTO) 0.1 10^3/uL (0.0-0.1); BASOPHILS % (AUTO) 0.8 %; EOSINOPHILS # (AUTO) 0.2 10^3/uL (0.0-0.7); EOSINOPHILS % (AUTO) 3.2 %; HCT - HEMATOCRIT 35.8 % (37.0-47.0); HGB - HEMOGLOBIN 11.7 g/dL (12.0-16.0); LYMPHOCYTES % (AUTO) 27.5 %; MEAN CORPUSCULAR HEMOGLOBIN 29.2 pg (27.0-31.0); MEAN CORPUSCULAR HGB CONC 32.7 g/dL (32.0-36.0); MEAN CORPUSCULAR VOLUME 89.3 fL (81.0-99.0); MEAN PLATELET VOLUME 9.6 fL (7.9-10.8); MONOCYTES # (AUTO) 0.5 10^3/uL (0.0-1.0); MONOCYTES % (AUTO) 7.3 %; NEUTROPHILS # (AUTO) 4.5 10^3/uL (1.5-6.6); NEUTROPHILS % (AUTO) 61.1 %; PLT - PLATELET COUNT 260 10^3/uL (130-450); RED BLOOD COUNT 4.01 10^6/uL (4.20-5.40); RED CELL DISTRIBUTION WIDTH 13.2 % (12.0-15.0); WHITE BLOOD COUNT 7.3 x10^3/uL (4.8-10.8)
[2021-01-30 22:30] LABS: CALCIUM 9.4 mg/dL (8.5-10.3); CREATININE 0.8 mg/dL (0.4-1.0); POTASSIUM 3.6 mmol/L (3.5-5.0)
[2021-01-31] MEDS: SODIUM CHLORIDE FLUSH 0.9% 10 ML SYRINGE IVP SCH ×2 (00:38→08:11)
[2021-01-31 06:42] LABS: CALCIUM 9.1 mg/dL (8.5-10.3); CREATININE 0.7 mg/dL (0.4-1.0); POTASSIUM 3.7 mmol/L (3.5-5.0)
--- NOTE | 2021-01-31 07:06 | PROVIDER PROGRESS NOTE ---
Ip Network Architect Note - Ip Network Architect Note Ip Network Architect Note: Around 9:20 PM on 01/30/2021 staff assist was called to patient's room. Prior to the event she was conversing normally with the nurse and then suddenly became somewhat agitated thrashing around and teat chattering uncontrollably. During this time she seemed to give a slight indication of recognizing her name but for the most part would not respond to questions all follow commands. Objective work-up included checking a troponin level, CBC, BMP and an EKG. EKG showed sinus rhythm with a rate of 74. Troponin was 4.1. CBC and BMP were unremarkable. The patient was given a dose of Ativan 0.5 mg IV x1 which helped calm her down. After about 5 to 10 minutes she was able to respond appropriately though slightly drowsy.
[2021-01-31] MEDS: INSULIN ASPART 300 UNIT/3 ML PEN SUBQ SCH ×2 (07:27→12:08)
[2021-01-31] MEDS: lisinopriL 20 MG TABLET PO SCH (08:11)
[2021-01-31] MEDS ORDERED: INSULIN 70/30 HUMAN 300 UNIT/3 ML VIAL SUBQ SCH (09:00)
[2021-01-31] MEDS ORDERED: metFORMIN 500 MG TABLET PO SCH (09:00)
[2021-01-31] MEDS ORDERED: ASPIRIN EC 81 MG TABLET PO SCH (09:00)
[2021-01-31 11:03] VITALS: BP 170/73
[2021-01-31 12:04] LABS: ESTIMATED AVERAGE GLUCOSE 120 mg/dL (70-100); HEMOGLOBIN A1c% 5.8 % (4.27-6.07)
--- NOTE | 2021-01-31 12:31 | MRI Report ---
PROCEDURE: Brain W/O INDICATIONS: Aphasia TECHNIQUE: Noncontrast axial T1 spin echo, axial T2 fast spin echo, sagittal and axial FLAIR, coronal T2 fast sp in echo, axial gradient echo, axial diffusion and ADC through the brain. COMPARISON: None. FINDINGS: Image quality: Excellent. CSF Spaces: Basal cisterns are patent. No extra-axial fluid collections. Ventricles are normal in size and shape. Brain: No intracranial masses or hemorrhage. There is moderate, diffuse cerebral volume loss. There are mild periventricular and subcortical white matter chronic microvascular ischemic changes. Piedra/w tommie matter interface is normal. Brainstem appears normal. Diffusion-weighted images demonstrate no acute ischemic insult. No chronic ischemic insults. Normal intravascular flow voids are present. Skull and face: Calvarium has normal marrow signal. Orbits appear normal. Sinuses: Sinuses and mastoids are clear. IMPRESSION: 1. No acute intracranial disease process. 2. No areas of acute or chronic infarction. 3. Moderate, diffuse cerebral volume loss. 4. Mild periventricular and subcortical white matter chronic microvascular ischemic change. Reviewed by: Bonnie hSukla MD, PhD on 01/31/2021 12:29 PM PST Approved by: Bonnie Shukla MD, PhD on 01/31/2021 12:29 PM PST Station ID: [id number]
--- NOTE | 2021-01-31 12:54 | Discharge Plan ---
Discharge Plan Problem Reviewed?: Yes Disposition: Home, Self Care Condition: Stable Prescriptions: Insulin 70/30 Human [Humulin 70-30 Vial] 8 unit SUBQ QPM #1 vial Insulin 70/30 Human [NovoLIN] 8 unit SUBQ QPM #1 pe Diet: Diabetic Activity Restrictions: Activity as Tolerated Shower Restrictions: No Driving Restrictions: No Health Concerns: You were in Observation status for a day to monitor your heart rhythm for slow heart rates or "flat lining". The heart monitor was fine, and your Echo and blood tests were negative for a heart attack now or in your past. The "flat lining" during your colonoscopy was probably caused by a reflex called vagotonia. You will need referral to a Specialist Employee Labor Relations to watch you for possibly needing a pacemaker in your future. Also, the confusion and teeth clenching that occurred overnight, was tested for a stroke. The brain MRI did not show a stroke now or in your past. However, it did show that your brain has "microvascular" changes of aging. For this, you should be taking one baby aspirin daily and have good cholesterol control and glucose control. Your A1c result came back at 5.8, indicating that your glucose control is TOO TIGHT, and that you must be having some very low glucose levels, like we saw here. In fact, those low glucose levels could be causing that "inability to speak" or the "teeth clenching", possibly. Please decrease both your morning and nightime Insulin levels as advised here, and see Dr Crawford for a hospital follow-up visit, to help you adjust the Insulin. Plan of Treatment: As above. Care Goals: Improvement in symptoms and stabilization are the goals. Assessment: The patient understands and is agreeable with the plan. Additional Instructions or Follow Up instructions: It is unclear why you were on Keflex. See PCP if needed. No Smoking: If you smoke, Please STOP! Call for help. Follow-up with: Ivana Crawford MD [Primary Care Provider] -
--- NOTE | 2021-01-31 14:24 | DISCHARGE SUMMARY ---
Discharge Summary Admit Date: 01/30/21 Discharge Date: 01/31/21 Discharging Provider: Dr Ruth Mariano Primary Care Provider: Dr Ivana Crawford Code Status: Attempt Resuscitation Condition at Discharge: Stable Discharge Disposition: 01 Home, Self Care - HPI History of Present Illness: This is a 70-year-old black female with a history of diabetes on insulin for the past 7 to 8 years, possible history of old RI and stroke about 3 years ago and Hx of hypertension. Patient has had rectal bleeding and was scheduled to undergo colonoscopy with polypectomy, approximately a week ago, but she awoke with a low morning glucose of 56 and the colonoscopy was postponed in order for her to eat. Today she did undergo the colonoscopy, because it was rescheduled. In the operating room, during the procedure, she developed recurrent episodes of marked bradycardia and then complete heart block twice (where P waves were present but no QRS's present) creating asystole with pauses of greater than 5 seconds. The colonoscopy was completed as scheduled however, and the patient was transferred to the PACU. A consultation has been requested for management from the Hospitalist team. The patient is still groggy but able to give me a answers slowly and coherently but falls back asleep easily. She claims she is on no heart medicines, specifically no heart rate slowing medications. She says she does not see a Housing Project Manager. There was no stenting done, if she had a coronary angiogram when she lived in [place]. She does report 3 episodes of syncope in her life, the most recent was about 7 to 8 years ago and she does not think she was seen in an ER with that. She is being placed in Observation status on telemetry due to the complete heart block, for further evaluation. [Later that day we learned she has never had an RI and probably never had a coronary angiogram, also that the diagmoses of stroke and RI were from the assumptions of an ER doctor in [place]]. - HOSPITAL COURSE Hospital Course: (1) Complete heart block, transient The impression of the Anesthesiologist on the case, was that she had increased vagal tone since this occurred during colonoscopy with colon insufflation. Telemetry monitoring showed no dangerous arrhythmias. Her troponins were normal and TSH was normal. An Echo showed normal LVEF. She was discharged in stable condition. She should avoid being on heart rate slowing medications. She does still needs referral to a Housing Project Manager to monitor if she will someday need a pacemaker since this amount of vagotonia is excessive in a patient with normal conduction system, and I suspect she will in fact someday need a pacemaker. (2) Stroke-like symptoms At 9:30 PM on the night of admission, she described indigestion type chest pain and then suddenly became confused, was thrashing, was teeth clenching and repeatedly biting, and was unable to follow directions. An EKG and VS were stable. The symptoms stopped in about 20 min. The following day, the patient described the episode to me as "being unable to speak". She underwent a brain MRI therefore, which showed no acute stroke, no old stroke, but reported microvascular changes. She should remain on an aspirin daily and have good cholesterol control. (3) Type 2 diabetes mellitus She was kept on her usual Insulin and was ordered a carb controlled diet, with sliding scale Insulin coverage. Her fasting glu the next morning was very low at 57. Her A1c came back at 5.8, which suggests her glu control is too tight overall, and that she may have hypoglycemia as the cause of confusion or that "inability to speak". At discharge, she was advised to decrease her Insulin dosing from 20 units in the morning and 10 units in the evening, down to 16 U in the morning and 8 U in the evening. No change was made in Metformin. She was advised to see her PCP for further management. (4) Hypertension We ordered her usual BP meds with parameters for holding. (5) Rectal bleeding The findings at colonoscopy were that her rectal bleeding was from hemorrhoids, as per Dr Ramirez. - ALLERGIES Allergies/Adverse Reactions: Allergies Allergy/AdvReac Type Severity Reaction Status Date / Time No Known Drug Allergies Allergy Verified 06/24/18 08:04 - MEDICATIONS Home Medications: Ambulatory Orders Medication Instructions Recorded Confirmed Aspirin [Adult Aspirin] 81 mg PO DAILY 04/30/18 01/30/21 Atorvastatin Calcium [Lipitor] 80 mg PO QPM 04/30/18 01/30/21 Biotin 500 mcg PO DAILY 04/30/18 01/30/21 Cholecalciferol [Vitamin D3] 5,000 unit PO DAILY 04/30/18 01/30/21 Clopidogrel Bisulfate [Clopidogrel] 75 mg PO DAILY 04/30/18 01/30/21 Cyanocobalamin (Vitamin B-12) 500 mcg PO DAILY 04/30/18 01/30/21 [Vitamin B-12] Insulin NPH Hum/Reg Insulin Hm 20 unit SQ DAILY 04/30/18 01/30/21 [Novolin 70-30 Flexpen] Lactobacillus Acidophilus 1 each PO DAILY 04/30/18 01/30/21 [Probiotic Acidophilus] Multivitamin [Multiple Vitamins] 1 each PO DAILY 04/30/18 01/30/21 [place]-3/Dha/Epa/Fish Oil [Fish Oil 1 each PO DAILY 04/30/18 01/30/21 1,000 mg Softgel] Pyridoxine HCl (Vitamin B6) 100 mg PO ONCE 04/30/18 01/30/21 [Vitamin B-6] Turmeric Root Extract [Turmeric] 500 mg PO DAILY 04/30/18 01/30/21 Vitamin E 400 unit PO DAILY 04/30/18 01/30/21 lisinopriL [Lisinopril] 40 mg PO BID 04/30/18 01/30/21 metFORMIN [Glucophage] 500 mg PO DAILY 04/30/18 01/30/21 Insulin 70/30 Human [Humulin 70-30 8 unit SUBQ QPM #1 vial 01/31/21 Vial] Insulin 70/30 Human [Humulin 70-30 16 unit SUBQ DAILY #1 vial 01/31/21 Vial] Insulin 70/30 Human [NovoLIN] 8 unit SUBQ QPM #1 pe 01/31/21 - PHYSICAL EXAM AT DISCHARGE General Appearance: positive: No acute distress Eyes Bilateral: positive: Normal inspection, EOMI ENT: positive: ENT inspection nml, No signs of dehydration Neck: positive: Nml inspection, Thyroid nml, No JVD Respiratory: positive: No respiratory distress, Breath sounds nml Cardiovascular: positive: Regular rate & rhythm, No murmur Abdomen: positive: Non-tender, No distention Skin: positive: Warm, Dry Extremities: positive: Non-tender, No pedal edema Neurologic/Psychiatric: positive: Oriented x3 (Non-focal) - LABS Result Diagrams: 01/30/21 22:13 01/31/21 05:31 - DIAGNOSTIC IMAGING Diagnostic Imaging Results: Final report reviewed - FOLLOW UP Follow Up: See PCP rogen 1-2 weeks in hospital follow-up. - TIME SPENT Time Spent in Discharge (Minutes): 35
== END 2021-01-31 15:34 | disposition home or self-care (01) ==
LOC: SDS 06:32 → MS2 10:55
PROVIDERS: ADMIT Internal Medicine; ATTEND Internal Medicine
PROC: 0DBN8ZZ Excision of Sigmoid Colon, Via Natural or Artificial Opening Endoscopic (ICD-10-PCS; 2021-01-30)
PROC: 0DBP8ZZ Excision of Rectum, Via Natural or Artificial Opening Endoscopic (ICD-10-PCS; 2021-01-30)
PROC: 0DBK8ZZ Excision of Ascending Colon, Via Natural or Artificial Opening Endoscopic (ICD-10-PCS; principal; 2021-01-30 07:30)
DX: I97.791 Other intraoperative cardiac functional disturbances during other surgery (principal); I44.2 Atrioventricular block, complete; E11.9 Type 2 diabetes mellitus without complications; Z79.4 Long term (current) use of insulin; R07.9 Chest pain, unspecified; R41.0 Disorientation, unspecified; I10 Essential (primary) hypertension; D12.2 Benign neoplasm of ascending colon; K62.1 Rectal polyp; K64.8 Other hemorrhoids; K64.4 Residual hemorrhoidal skin tags; K63.5 Polyp of colon; K57.30 Diverticulosis of large intestine without perforation or abscess without bleeding; M26.51 Abnormal jaw closure; E78.00 Pure hypercholesterolemia, unspecified; Z87.891 Personal history of nicotine dependence
CPT/HCPCS: 36415; 45380; 70551; 80048; 80053; 83036; 84443; 84484; 85025; 85379; 85610; 87631; 93005; 93306; 96374; A9270; J1815; J2060; J7120; 0202U

== ENCOUNTER 2021-04-03 14:05 | Outpatient (CLI) | payer MEDICARE, MEDICAID ==
[2021-04-03 14:22] LABS: BASOPHILS # (AUTO) 0.1 10^3/uL (0.0-0.1); BASOPHILS % (AUTO) 0.6 %; EOSINOPHILS # (AUTO) 0.2 10^3/uL (0.0-0.7); EOSINOPHILS % (AUTO) 1.8 %; HCT - HEMATOCRIT 40.2 % (37.0-47.0); HGB - HEMOGLOBIN 13.2 g/dL (12.0-16.0); LYMPHOCYTES # (AUTO) 2.2 10^3/uL (1.5-3.5); LYMPHOCYTES % (AUTO) 24.3 %; MEAN CORPUSCULAR HEMOGLOBIN 29.3 pg (27.0-31.0); MEAN CORPUSCULAR HGB CONC 32.8 g/dL (32.0-36.0); MEAN CORPUSCULAR VOLUME 89.1 fL (81.0-99.0); MEAN PLATELET VOLUME 9.4 fL (7.9-10.8); MONOCYTES # (AUTO) 0.5 10^3/uL (0.0-1.0); MONOCYTES % (AUTO) 5.4 %; NEUTROPHILS % (AUTO) 67.7 %; PLT - PLATELET COUNT 300 10^3/uL (130-450); RED BLOOD COUNT 4.51 10^6/uL (4.20-5.40); WHITE BLOOD COUNT 8.8 x10^3/uL (4.8-10.8)
[2021-04-03 14:44] LABS: ALBUMIN 4.4 g/dL (3.2-5.5); ALBUMIN/GLOBULIN RATIO 1.3 (1.0-2.2); ALKALINE PHOSPHATASE 54 IU/L (42-121); ALT ALANINE AMINOTRANSFERASE 25 IU/L (10-60); AST ASPARTATE AMINOTRANSFERASE 23 IU/L (10-42); BILIRUBIN,TOTAL 0.7 mg/dL (0.2-1.0); BUN - BLOOD UREA NITROGEN 18 mg/dL (6-20); CALCIUM 10.3 mg/dL (8.5-10.3); CARBON DIOXIDE - CO2 30 mmol/L (21-32); CHLORIDE 99 mmol/L (101-111); CHOL/HDL RATIO 5.2 (<4.4); CHOLESTEROL 384 mg/dL; CREATININE 0.7 mg/dL (0.4-1.0); GFR - MDRD 101 (>89); GLUCOSE 88 mg/dL (70-100); HDL CHOLESTEROL 74 mg/dL; LDL CHOLESTEROL,CALCULATED 256 mg/dL; LDL/HDL RATIO 3.5 (<4.4); POTASSIUM 3.6 mmol/L (3.5-5.0); SODIUM 140 mmol/L (135-145); TOTAL PROTEIN 7.8 g/dL (6.7-8.2); TRIGLYCERIDES 269 mg/dL; VLDL CHOLESTEROL 54 mg/dL
[2021-04-03 15:32] LABS: ESTIMATED AVERAGE GLUCOSE 134 mg/dL (70-100); HEMOGLOBIN A1c% 6.3 % (4.27-6.07)
[2021-04-03 15:37] LABS: CREATININE,URINE 29.4 mg/dL; MICROALBUM/CREATININE RATIO,UR 10.2 ug/mg (<30.0); MICROALBUMIN,URINE 0.3 mg/dL (0-300.0)
== END 2021-04-03 14:06 | disposition home or self-care (01) ==
LOC: LAB 14:05
PROVIDERS: ATTEND Internal Medicine
DX: E11.9 Type 2 diabetes mellitus without complications (principal); I10 Essential (primary) hypertension; E78.5 Hyperlipidemia, unspecified; Z13.6 Encounter for screening for cardiovascular disorders; Z79.899 Other long term (current) drug therapy
CPT/HCPCS: 36415; 80053; 80061; 82043; 82570; 83036; 83721; 84443; 85025

== ENCOUNTER 2021-05-18 12:47 | Outpatient (CLI) | payer MEDICARE, MEDICAID ==
[2021-05-18 13:13] LABS: ESTIMATED AVERAGE GLUCOSE 151 mg/dL (70-100); HEMOGLOBIN A1c% 6.9 % (4.27-6.07)
[2021-05-18 13:13] LABS: BILIRUBIN,URINE NEGATIVE (NEGATIVE); GLUCOSE, URINE (UA) NEGATIVE (NEGATIVE); KETONES,URINE (UA) NEGATIVE (NEGATIVE); LEUKOCYTE ESTERASE, URINE SMALL (NEGATIVE); NITRITE,URINE POSITIVE (NEGATIVE); OCCULT BLOOD,URINE TRACE-INTA (NEGATIVE); PROTEIN,URINE NEGATIVE (NEGATIVE); UROBILINOGEN,URINE 0.2 (NORMAL) E.U./dL (NORMAL)
[2021-05-18 13:14] LABS: CLARITY,URINE HAZY (CLEAR)
[2021-05-18 13:16] LABS: BASOPHILS # (AUTO) 0.1 10^3/uL (0.0-0.1); BASOPHILS % (AUTO) 0.6 %; EOSINOPHILS # (AUTO) 0.1 10^3/uL (0.0-0.7); HGB - HEMOGLOBIN 13.1 g/dL (12.0-16.0); LYMPHOCYTES # (AUTO) 1.4 10^3/uL (1.5-3.5); LYMPHOCYTES % (AUTO) 14.4 %; MEAN CORPUSCULAR HEMOGLOBIN 29.5 pg (27.0-31.0); MEAN CORPUSCULAR HGB CONC 32.8 g/dL (32.0-36.0); MEAN CORPUSCULAR VOLUME 90.1 fL (81.0-99.0); MEAN PLATELET VOLUME 9.7 fL (7.9-10.8); MONOCYTES # (AUTO) 0.3 10^3/uL (0.0-1.0); MONOCYTES % (AUTO) 3.2 %; NEUTROPHILS # (AUTO) 7.8 10^3/uL (1.5-6.6); NEUTROPHILS % (AUTO) 80.4 %; PLT - PLATELET COUNT 271 10^3/uL (130-450); RED BLOOD COUNT 4.44 10^6/uL (4.20-5.40); RED CELL DISTRIBUTION WIDTH 12.9 % (12.0-15.0); WHITE BLOOD COUNT 9.7 x10^3/uL (4.8-10.8)
[2021-05-18 13:19] LABS: ALBUMIN 4.2 g/dL (3.2-5.5); ALBUMIN/GLOBULIN RATIO 1.2 (1.0-2.2); BILIRUBIN,TOTAL 0.4 mg/dL (0.2-1.0); CALCIUM 9.9 mg/dL (8.5-10.3); CREATININE 0.7 mg/dL (0.4-1.0); POTASSIUM 3.5 mmol/L (3.5-5.0); TOTAL PROTEIN 7.7 g/dL (6.7-8.2)
[2021-05-18 13:21] LABS: BACTERIA,URINE Many /HPF (None Seen); RBC,URINE 0-5 /HPF (0-5); SQUAMOUS EPITHELIAL CELL,UR RARE Squamous (<= Few); WBC CLUMPS,URINE PRESENT
[2021-05-18 13:36] LABS: THYROID STIMULATING HORMONE 0.58 uIU/mL (0.34-5.60)
== END 2021-05-18 12:48 | disposition home or self-care (01) ==
LOC: LAB 12:47
PROVIDERS: ATTEND Internal Medicine
DX: E11.9 Type 2 diabetes mellitus without complications (principal); R06.09 Other forms of dyspnea; R53.83 Other fatigue; R42 Dizziness and giddiness; R53.1 Weakness
CPT/HCPCS: 36415; 80053; 81001; 82607; 83036; 83880; 84443; 85025; 87086

== ENCOUNTER 2021-05-19 11:56 | Emergency (ER) | payer MEDICARE, MEDICAID ==
--- NOTE | 2021-05-19 12:45 | ED Physician Documentation ---
History of Present Illness - Stated complaint Stated Complaint: NUMBNESS IN RT FT TOES - Chief complaint Chief Complaint: Neuro - Additonal information Additional information: 70-year-old diabetic female presents emergency department for evaluation of reported numbness and tingling in her right toes. She reports that when she woke up this morning she had numbness in her toes and could not move the big toe. She states that it felt like her foot was lead. She states that if she stands for too long she also begins to have the sensation of numbness or tingling in her foot. This resolved shortly after getting up. She describes her self is a very active person and this has caused her great concern. She did see her primary care provider Dr. Crawford yesterday and had routine screening labs completed. Her hemoglobin A1c is 6.9 and her blood glucose was more than 280. She was also noted to have a urinary tract infection. Her primary care provider has sent a prescription for an antibiotic to the pharmacy which she has not yet filled. The patient states that this morning she had the sensation to pee but had difficult time holding her bladder. She did not have any saddle anesthesia. She denies any back pain fevers or motor weakness at this time in her foot. She does not have any paresthesias in her foot. Review of Systems Constitutional: denies: Fever, Chills Eyes: reports: Reviewed and negative Nose: reports: Reviewed and negative Throat: reports: Reviewed and negative Cardiac: reports: Reviewed and negative Respiratory: reports: Reviewed and negative GI: reports: Reviewed and negative : reports: Other (Urgency without dysuria.) Skin: reports: Reviewed and negative Neurologic: reports: Numbness (Intermittently right toes.) PD PAST MEDICAL HISTORY - Past Medical History Cardiovascular: Hypertension, High cholesterol, [place], Murmur Respiratory: Shortness of breath Neuro: CVA Endocrine/Autoimmune: Type 2 diabetes GI: None : Nocturia HEENT: Chronic vision loss, Chronic hearing loss Psych: None Musculoskeletal: None Derm: None - Past Surgical History Past Surgical History: Yes General: Colonoscopy Ortho: Carpal Tunnel surgery Cardiovascular: Cardiac catheterization - Present Medications Home Medications: Ambulatory Orders Medication Instructions Recorded Confirmed Aspirin [Adult Aspirin] 81 mg PO DAILY 04/30/18 03/13/21 Biotin 500 mcg PO DAILY 04/30/18 03/13/21 Cholecalciferol [Vitamin D3] 5,000 unit PO DAILY 04/30/18 03/13/21 Cyanocobalamin (Vitamin B-12) 500 mcg PO DAILY 04/30/18 03/13/21 [Vitamin B-12] Lactobacillus Acidophilus 1 each PO DAILY 04/30/18 03/13/21 [Probiotic Acidophilus] Multivitamin [Multiple Vitamins] 1 each PO DAILY 04/30/18 03/13/21 [place]-3/Dha/Epa/Fish Oil [Fish Oil 1 each PO DAILY 04/30/18 03/13/21 1,000 mg Softgel] Pyridoxine HCl (Vitamin B6) 100 mg PO ONCE 04/30/18 03/13/21 [Vitamin B-6] Turmeric Root Extract [Turmeric] 500 mg PO DAILY 04/30/18 03/13/21 Vitamin E 400 unit PO DAILY 04/30/18 03/13/21 lisinopriL [Lisinopril] 40 mg PO BID 04/30/18 03/13/21 Insulin 70/30 Human [Humulin 70-30 16 unit SUBQ DAILY #1 vial 01/31/21 03/13/21 Vial] Insulin 70/30 Human [NovoLIN] 8 unit SUBQ QPM #1 pe 01/31/21 03/13/21 Amlodipine Besylate [Norvasc] 10 mg PO DAILY 03/13/21 03/13/21 Metformin HCl [Glumetza] 500 mg PO BID 03/13/21 03/13/21 hydroCHLOROthiazide [Hydrodiuril] 25 mg PO DAILY 03/13/21 03/13/21 - Allergies Allergies/Adverse Reactions: Allergies Allergy/AdvReac Type Severity Reaction Status Date / Time No Known Drug Allergies Allergy Verified 06/24/18 08:04 - Social History Does the pt smoke?: No Smoking Status: Former smoker Does the pt drink ETOH?: No Does the pt have substance abuse?: No - Immunizations Immunizations are current?: Yes - POLST Patient has POLST: No PD ED PE EXPANDED - General General: Alert, No acute distress - Cardiac Cardiac: Regular Rate, Pedal strong equal, Cap refill < 2 sec - Respiratory Respiratory: Clear to ausultation abby. No: Distress, Labored - Abdomen Abdomen: Normal Bowel sounds. No: Tender to palpation - Back Back: Normal exam, Other (Normal gait without assistance. Normal forward flexion of the lower lumbar spine without any tenderness elicited. 2+ patellar reflexes. Motor strength 5 of 5 at hip knees ankles and feet bilaterally.). No: Vertebral tenderness, Soft tissue tenderness - Derm Derm: Normal color, Warm and dry. No: Rash - Neuro Neuro: Alert and Oriented X 3, Normal Sensation, Other (Normal sensation of the right foot. Upgoing great toes. Normal gait. Normal dorsi and plantar flexion. Full range of motion at the ankle. 2+ DP pulse. Warm foot.) - GCS Eye Opening: Spontaneous Motor: Obeys Commands Verbal: Oriented Total: 15 Results - Vitals Vitals: Vital Signs - 24 hr 05/19/21 05/19/21 12:05 12:34 Temperature 36.6 C Heart Rate 79 73 Respiratory 16 16 Rate Blood Pressure 126/67 132/70 H O2 Saturation 97 98 Oxygen O2 Source Room air PD MEDICAL DECISION MAKING - ED course Complexity details: reviewed old records, reviewed results, re-evaluated patient, considered differential, d/w patient ED course: 70-year-old female who has a history of diabetes presents emergency department for evaluation of intermittent numbness and tingling that she noted this morning when she woke up from bed. States that the toes of the feet were numb and she could not move them. She also reports a felt like she had a lead foot. 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 She did see her primary care provider yesterday had screening labs obtained. She was noted to have an incidental finding of a UTI with. Prescription was [facility] to [facility]. She endorsed some urinary urgency this morning but no low back pain saddle anesthesia or incontinence. On exam right now she has normal sensation and movement of the foot and leg. Normal reflexes. No low back pain or saddle anesthesia. A rectal exam was deferred. She also has an unassisted gait. Very low suspicion for cauda equina. I do consider that she may have some intermittent tingling and numbness in the foot due to a new sleeping position. However she does have rising A1c as well as blood sugars over the last year and she could be developing some early neuropathy. At this time no further emergent imaging or testing would be warranted. I have encouraged her to have close follow-up in conversation with a primary care doctor. Departure - Departure Disposition: 01 Home, Self Care Clinical Impression: Numbness Condition: Stable Record reviewed to determine appropriate education?: Yes Comments: Estefanía you are seen today in the emergency department because you had some toe numbness in your right foot this morning shortly after waking. As we discussed at the bedside I suspect that the numbness and tingling that resolved may have been related to your new sleeping position being on your back at night. However it is possible that you could be developing an early neuropathy. Your blood sugars and your A1c have been steadily rising over the last 2 years. I do recommend that you continue to take your insulins and other medications as prescribed by Dr. Crawford. As we discussed at the bedside it is very unlikely that the cause of this numbness and tingling is due to a problem with your spinal cord in your lower back. Your labs yesterday did show that you have a urinary tract infection. It is important that you fill the prescription that Dr. Crawford sent to the pharmacy. I would discuss this ED visit with her in the upcoming few weeks. If your symptoms are not improving she may elect to consider outpatient imaging such as an MRI which is not available today in the emergency department.
[2021-05-19 13:23] VITALS: BP 138/66
== END 2021-05-19 13:35 | disposition home or self-care (01) ==
LOC: ED 11:56
DX: R20.0 Anesthesia of skin (principal); N39.0 Urinary tract infection, site not specified; E11.9 Type 2 diabetes mellitus without complications; Z79.4 Long term (current) use of insulin; Z79.84 Long term (current) use of oral hypoglycemic drugs; Z87.891 Personal history of nicotine dependence
CPT/HCPCS: 99281; 99282

== ENCOUNTER 2021-05-21 15:56 | Outpatient (CLI) | payer MEDICARE, MEDICAID ==
--- NOTE | 2021-05-21 16:28 | CT Report ---
PROCEDURE: HEAD WO INDICATIONS: RT LEG NUMBNESS TECHNIQUE: Noncontrast 4.5 mm thick angled axial sections acquired from the foramen magnum to the vertex. For r adiation dose reduction, the following was used: automated exposure control, adjustment of mA and/or kV according to patient size. COMPARISON: None. FINDINGS: Image quality: Excellent. CSF spaces: Basal cisterns are patent. No extra-axial fluid collections. Ventricles are normal in size and shape. Brain: No midline shift. No intracranial masses or hemorrhage. Piedra-white matter interface is norm al. Skull and face: Calvarium and visualized facial bones are intact, without suspicious lesions. Sinuses: Visualized sinuses and mastoids are clear. IMPRESSION: 1. No acute intracranial process. Reviewed by: Marisel Garcia MD on 05/21/2021 4:27 PM PDT Approved by: Marisel aGrcia MD on 05/21/2021 4:27 PM PDT Station ID: [id number]
== END 2021-05-21 15:57 | disposition home or self-care (01) ==
LOC: DI 15:56
PROVIDERS: ATTEND Internal Medicine
DX: R20.0 Anesthesia of skin (principal)

== ENCOUNTER 2021-05-22 08:09 | Outpatient (CLI) | payer MEDICARE, MEDICAID | END 2021-05-22 08:10 | disposition critical access hospital (66) | LOC: EMS 08:09 | DX: R20.0 Anesthesia of skin (principal); R53.1 Weakness | CPT/HCPCS: A0425; A0429 ==

== ENCOUNTER 2021-05-22 08:35 | Emergency (ER) | payer MEDICARE, MEDICAID ==
--- NOTE | 2021-05-22 08:41 | ED Physician Documentation ---
PD HPI FOCAL NEURO - Stated complaint Stated Complaint: R LEG WEAKNESS - History obtained from History obtained from: Patient - History of Present Illness Timing - onset: How many days ago (4-5) Timing - duration: Days (4-5) Timing - details: Abrupt onset (The patient noticed onset of numbness tingling and some weakness of the right lower leg 4 to 5 days ago. It has become more noticeably weak to the point of unable to stand. Family picked up a walker but she is still unable to ambulate right leg. Mild right arm weak.) Severity of deficit: Moderate Weakness: Leg, Foot, Right. No: Face Numbness: Leg, Foot, Right. No: Face Associated symptoms: Back pain (chronic). No: Headache, Nausea / vomiting, Neck pain Recently seen: Emergency Dept (Seen 4 days ago in the ER for numbness of the leg and had basic blood tests done. No demonstrable weakness per se. Had outpatient head CT scan yesterday by primary care without any acute abnormality.) Review of Systems Constitutional: denies: Fever, Chills Nose: denies: Rhinorrhea / runny nose, Congestion Throat: denies: Sore throat Respiratory: denies: Cough GI: denies: Abdominal Pain, Nausea, Vomiting, Diarrhea Neurologic: denies: Headache, Head injury PD PAST MEDICAL HISTORY - Past Medical History Cardiovascular: Hypertension, High cholesterol, RI, Murmur Respiratory: Shortness of breath Neuro: CVA Endocrine/Autoimmune: Type 2 diabetes GI: None : Nocturia HEENT: Chronic vision loss, Chronic hearing loss Psych: None Musculoskeletal: None Derm: None - Past Surgical History Past Surgical History: Yes General: Colonoscopy Ortho: Carpal Tunnel surgery Cardiovascular: Cardiac catheterization - Present Medications Home Medications: Ambulatory Orders Medication Instructions Recorded Confirmed Aspirin [Adult Aspirin] 81 mg PO DAILY 04/30/18 05/22/21 Biotin 500 mcg PO DAILY 04/30/18 05/22/21 Cholecalciferol [Vitamin D3] 5,000 unit PO DAILY 04/30/18 05/22/21 Cyanocobalamin (Vitamin B-12) 500 mcg PO DAILY 04/30/18 05/22/21 [Vitamin B-12] Lactobacillus Acidophilus 1 each PO DAILY 04/30/18 05/22/21 [Probiotic Acidophilus] Multivitamin [Multiple Vitamins] 1 each PO DAILY 04/30/18 05/22/21 [place]-3/Dha/Epa/Fish Oil [Fish Oil 1 each PO DAILY 04/30/18 05/22/21 1,000 mg Softgel] Pyridoxine HCl (Vitamin B6) 100 mg PO ONCE 04/30/18 05/22/21 [Vitamin B-6] Turmeric Root Extract [Turmeric] 500 mg PO DAILY 04/30/18 05/22/21 Vitamin E 400 unit PO DAILY 04/30/18 05/22/21 lisinopriL [Lisinopril] 40 mg PO BID 04/30/18 05/22/21 Insulin 70/30 Human [Humulin 70-30 16 unit SUBQ DAILY #1 vial 01/31/21 05/22/21 Vial] Insulin 70/30 Human [NovoLIN] 8 unit SUBQ QPM #1 pe 01/31/21 05/22/21 Amlodipine Besylate [Norvasc] 10 mg PO DAILY 03/13/21 05/22/21 Metformin HCl [Glumetza] 1,000 mg PO DAILY 03/13/21 05/22/21 Atorvastatin Calcium [Lipitor] 80 mg PO HS 05/22/21 05/22/21 cephALEXin [Keflex] 500 mg PO BID 05/22/21 05/22/21 hydroCHLOROthiazide [Hydrodiuril] 25 mg PO DAILY 05/22/21 05/22/21 - Allergies Allergies/Adverse Reactions: Allergies Allergy/AdvReac Type Severity Reaction Status Date / Time No Known Drug Allergies Allergy Verified 05/22/21 08:41 - Social History Does the pt smoke?: No Smoking Status: Former smoker Does the pt drink ETOH?: No Does the pt have substance abuse?: No - Immunizations Immunizations are current?: Yes - POLST Patient has POLST: No PD ED PE NORMAL - Vitals Vital signs reviewed: Yes - General General: Alert and oriented X 3, No acute distress, Well developed/nourished - HEENT HEENT: Atraumatic, Pharynx benign - Neck Neck: Supple, no meningeal sign, No adenopathy, No bruit - Cardiac Cardiac: RRR, No murmur - Respiratory Respiratory: Clear bilaterally - Abdomen Abdomen: Soft, Non tender, Non distended - Derm Derm: Normal color, Warm and dry, No rash - Neuro Neuro: Alert and oriented X 3, Normal speech, Other (Decreased strength and sensory perception to sharp and dull in the right leg. Some decreased strength in the right arm. Reflexes diminished on the right knee. No obvious facial asymmetry.) Eye Opening: Spontaneous Motor: Obeys Commands Verbal: Oriented GCS Score: 15 NIHSS - Level of Consciousness Level of consciousness: (0) Alert, Keenly responsive LOC Questions: (0) Answers both Q's correct LOC Commands: (0) Performs both correctly - Gaze Best Gaze: (0) Normal - Visual Visual: (0) No loss - Facial Palsy Facial Palsy: (0) Normal, symmetrical movement - Motor Arms (both separate) Motor Arm (right): (1) Drift Motor Arm (left): (0) No drift - Motor Legs (both separate) Motor Leg (right): (2) Some effort against gravity Motor Leg (left): (0) No drift - Limb Ataxia Limb Ataxia: (1) Present in 1 limb - Sensory Sensory: (1) Gjrk-ui-[id number] loss - Best Language Best Language: (0) No aphasia - Dysarthria Dysarthria: (0) Normal - Extinction and Inattention (formally neg Extinction and inattention: (0) No abnormality - Total Score/Results Total Score/Result: 5 Results - Vitals Vitals: Vital Signs - 24 hr 05/22/21 05/22/21 05/22/21 08:42 09:08 11:42 Temperature 37.1 C Heart Rate 83 77 108 H Respiratory 18 18 22 Rate Blood Pressure 133/81 H 125/78 174/94 H O2 Saturation 96 95 97 05/22/21 05/22/21 13:00 15:02 Temperature Heart Rate 67 84 Respiratory 18 Rate Blood Pressure 134/69 H 149/84 H O2 Saturation 94 100 Oxygen O2 Source Room air - EKG (time done) 14:48 Rate: Rate (enter#) Rhythm: NSR [place]: Normal Intervals: Normal VA QRS: Normal Ischemia: Normal ST segments. No: ST elevation c/w ischemia, ST depression - Labs Labs: Laboratory Tests 05/22/21 05/22/21 05/22/21 09:14 14:58 15:15 ESR 29 Sodium 138 Potassium 3.5 Chloride 99 L Carbon Dioxide 27 Anion Gap 12.0 BUN 17 Creatinine 0.8 Estimated GFR (MDRD) 86 L Glucose 157 H Calcium 9.6 Magnesium 1.7 Total Bilirubin 0.6 AST 18 ALT 20 Alkaline Phosphatase 46 Total Creatine Kinase 84 Total Protein 7.5 Albumin 4.2 Globulin 3.3 Albumin/Globulin Ratio 1.3 Lipase 27 SARS-CoV-2 (PCR) NOT DETECTED - Rads (name of study) lumbar MRI Radiology: Prelim report reviewed (diffuse disc disease. No acute process. ), See rad report brain MRI Radiology: Prelim report reviewed (Numerous small infarcts bilaterally in watershed areas.), See rad report PD MEDICAL DECISION MAKING - ED course Complexity details: reviewed results (Multiple small infarcts noted on brain MRI In watershed areas. Concerning for embolic. Comparison with MRI brain from January 2021 shows these lesions are new.), re-evaluated patient (no change in exam. Unable to ambulate with walker per nursing. ), considered differential (On physical exam, mainly weakness and numbness in the low reflex of the right leg. Consider this lumbar spine as well as brain etiology. We will try to obtain MRI.), d/w patient, d/w heritage consultant (Talked with our hospitalist here who felt the patient needed more evaluation with neurology as well as echocardiogram that we do not have available.) ED course: The patient with onset of numbness in the right leg and foot for 5 days ago. Has noticed increased weakness. Unable to walk now due to weakness in the right leg even with a walker. Noticing some right arm weakness as well. No visual loss or facial weakness. Able to converse. She had outpatient CT done yesterday that was normal but still concerning for acute stroke. We were able to obtain an MRI lumbar and head because of the predominance of leg weakness. Lumbar showed some arthritic changes and diffuse disc disease but no significant encroachment on the spinal cord. Head CT showed multiple small emboli in the watershed areas concerning for embolic phenomena. I talked with our hospitalist who felt the patient was needing a facility that could do echocardiogram and possibly NIKOLAS and further evaluation for the source of the likely emboli. We are looking for place for transfer at this point. The patient was given Plavix and Lovenox here in the ER. 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
[2021-05-22 09:33] LABS: ALBUMIN 4.2 g/dL (3.2-5.5); ALBUMIN/GLOBULIN RATIO 1.3 (1.0-2.2); BILIRUBIN,TOTAL 0.6 mg/dL (0.2-1.0); CALCIUM 9.6 mg/dL (8.5-10.3); CREATININE 0.8 mg/dL (0.4-1.0); MAGNESIUM 1.7 mg/dL (1.7-2.8); POTASSIUM 3.5 mmol/L (3.5-5.0); TOTAL PROTEIN 7.5 g/dL (6.7-8.2)
[2021-05-22] MEDS ORDERED: LORazepam 2 MG/ML VIAL IVP STA (11:43)
--- NOTE | 2021-05-22 12:39 | MRI Report ---
PROCEDURE: Lumbar Spine W/O INDICATIONS: right leg weakness for days TECHNIQUE: Noncontrast sagittal T1 spin echo and T2 fast echo, sagittal STIR, axial T1 and T2 fast spin echo thr ough the lumbar spine. In cases with scoliosis, additional coronal T2 fast spin echo may be performe d. COMPARISON: None. FINDINGS: Image quality: Motion artifact is noted. Alignment and Curvature: There is mild grade 1 anterolisthesis at L4-L5. Bone Marrow: Marrow is of normal overall signal. No acute vertebral body compression fractures. Spinal Cord: Conus medullaris terminates at the L1-L2 level. Visualized cord demonstrates normal si gnal and size. Paraspinous Soft Tissues: No paravertebral masses. Age-appropriate lower thoracic degenerative changes are seen. T12-L1: No significant abnormality is seen. L1-L2: The disc height is well-preserved. There is loss of disc signal seen. Mild disc bulge is s een. Mild to moderate facet hypertrophy is seen. Moderate bilateral neural foraminal narrowing is s een. No significant central canal narrowing is seen. L2-L3: The disc height is well-preserved. There is loss of disc signal seen. Moderate disc bulge is seen at this level. At least moderate facet hypertrophy is seen. Associated hypertrophy of the li gamentum flavum can be seen. Moderate bilateral neural foraminal narrowing is seen. Moderate cent ral canal narrowing is seen. L3-L4: Moderate loss of disc height and signal are seen. Moderate disc bulge is seen at this level . Moderate to prominent facet hypertrophy is seen. Associated hypertrophy of the ligamentum flavum c an be seen. There is moderate to severe bilateral neuroforaminal narrowing seen. Compression is seen upon the exiting nerve roots. Moderate central canal narrowing is seen. L4-L5: Mild loss of disc height and disc signal are seen. At least moderate disc bulge is seen. A s uperimposed central disc protrusion is seen. Prominent facet hypertrophy is seen. Associated hypertro phy of the ligamentum flavum can be seen. There is moderate to severe bilateral neuroforaminal narro wing seen, with associated compression upon the exiting L4 nerve roots. Moderate to severe central ca nal narrowing is seen, as on series 701 image 12. L5-S1: Mild loss of disc height and disc signal are seen. Mild to moderate disc bulge is seen, whic h is eccentric to the right. Moderate to prominent facet hypertrophy is seen, right worse than left. There is moderate to severe bilateral neuroforaminal narrowing seen, with a mild degree of compressio n upon the exiting L5 nerve roots. Mild to moderate central canal narrowing is seen. IMPRESSION: Multiple levels of lumbar spine degenerative change are seen, which are worst at the L4- L5 level. Reviewed by: Kendrick Turner MD on 05/22/2021 11:37 AM AKDOUG Approved by: Kendrick Turner MD on 05/22/2021 11:37 AM AKDOUG Station ID: [id number]
--- NOTE | 2021-05-22 13:08 | MRI Report ---
PROCEDURE: Brain W/O INDICATIONS: RIGHT leg weakness TECHNIQUE: Noncontrast axial T1 spin echo, axial T2 fast spin echo, sagittal and axial FLAIR, coronal T2 fast sp in echo, axial gradient echo, axial diffusion and ADC through the brain. COMPARISON: None. FINDINGS: These images demonstrate numerous small bilateral foci of restricted diffusion within the bilateral A CA-MCA and MCA-CALLIOPE PLAYER external watershed territories. There is FLAIR signal hyperintensity associated wi th most of the infarcts. No unexpected intracranial susceptibility. Mild global cerebral volume loss and mild chronic microvascular ischemic change. No mass effect or midline shift. The ventricles and b asilar cisterns are patent. No significant orbital abnormality. Paranasal sinuses and mastoid air michelle ls are predominantly clear. IMPRESSION: Numerous small bilateral LULY-MCA and MCA-CALLIOPE PLAYER external watershed infarcts. Reviewed by: Hugo Jefferson MD on 05/22/2021 1:06 PM PDT Approved by: Hugo Jefferson MD on 05/22/2021 1:06 PM PDT Station ID: [id number]
[2021-05-22] MEDS ORDERED: CLOPIDOGREL 75 MG TABLET PO STA (14:34)
[2021-05-22] MEDS ORDERED: ENOXAPARIN 80 MG/0.8 ML SYRINGE SUBQ STA (14:39)
[2021-05-22 19:41] VITALS: BP 139/72
== END 2021-05-22 20:15 | disposition short-term general hospital (02) ==
LOC: ED 08:35
DX: I63.9 Cerebral infarction, unspecified (principal); G81.91 Hemiplegia, unspecified affecting right dominant side; I10 Essential (primary) hypertension; R29.705 NIHSS score 5; E11.9 Type 2 diabetes mellitus without complications; Z79.84 Long term (current) use of oral hypoglycemic drugs; Z79.4 Long term (current) use of insulin; Z87.891 Personal history of nicotine dependence; Z20.822 Contact with and (suspected) exposure to COVID-19
CPT/HCPCS: 36415; 70551; 72148; 80053; 82550; 83690; 83735; 85651; 87635; 93005; 96372; 96374; 99284; 99285; A9270; J1650; J2060

== ENCOUNTER 2021-05-22 19:56 | Outpatient (CLI) | payer MEDICARE, MEDICAID | END 2021-05-22 19:57 | disposition short-term general hospital (02) | LOC: EMS 19:56 | PROVIDERS: ATTEND Emergency Medicine | DX: R20.0 Anesthesia of skin (principal); R20.2 Paresthesia of skin | CPT/HCPCS: A0425; A0428 ==

== ENCOUNTER 2021-09-27 08:00 | Outpatient (CLI) | payer MEDICARE, MEDICAID ==
[2021-09-27 15:43] LABS: CREATININE,URINE 36.6 mg/dL; MICROALBUM/CREATININE RATIO,UR 10.9 ug/mg (<30.0); MICROALBUMIN,URINE 0.4 mg/dL (0-300.0)
== END 2021-09-27 23:59 | disposition home or self-care (01) ==
LOC: LAB.R 08:00
PROVIDERS: ATTEND Internal Medicine
DX: Z00.00 Encounter for general adult medical examination without abnormal findings (principal); I63.9 Cerebral infarction, unspecified; E11.9 Type 2 diabetes mellitus without complications; E78.5 Hyperlipidemia, unspecified; I10 Essential (primary) hypertension; I73.9 Peripheral vascular disease, unspecified; Z86.010 Personal history of colon polyps; Z78.9 Other specified health status
CPT/HCPCS: 36415; 80053; 80061; 82043; 82550; 82570; 83036; 83721; 84443; 85025

== ENCOUNTER 2021-09-27 11:18 | Outpatient (CLI) | payer MEDICARE, MEDICAID ==
[2021-09-27 11:36] LABS: BASOPHILS % (AUTO) 0.5 %; EOSINOPHILS # (AUTO) 0.1 10^3/uL (0.0-0.7); EOSINOPHILS % (AUTO) 1.3 %; HCT - HEMATOCRIT 38.4 % (37.0-47.0); HGB - HEMOGLOBIN 12.6 g/dL (12.0-16.0); LYMPHOCYTES # (AUTO) 1.5 10^3/uL (1.5-3.5); LYMPHOCYTES % (AUTO) 18.9 %; MEAN CORPUSCULAR HEMOGLOBIN 30.1 pg (27.0-31.0); MEAN CORPUSCULAR HGB CONC 32.8 g/dL (32.0-36.0); MEAN CORPUSCULAR VOLUME 91.6 fL (81.0-99.0); MEAN PLATELET VOLUME 9.9 fL (7.9-10.8); MONOCYTES # (AUTO) 0.3 10^3/uL (0.0-1.0); MONOCYTES % (AUTO) 3.9 %; NEUTROPHILS # (AUTO) 5.9 10^3/uL (1.5-6.6); NEUTROPHILS % (AUTO) 75.1 %; PLT - PLATELET COUNT 246 10^3/uL (130-450); RED BLOOD COUNT 4.19 10^6/uL (4.20-5.40); RED CELL DISTRIBUTION WIDTH 12.8 % (12.0-15.0); WHITE BLOOD COUNT 7.9 x10^3/uL (4.8-10.8)
[2021-09-27 11:53] LABS: ALBUMIN 4.4 g/dL (3.2-5.5); ALBUMIN/GLOBULIN RATIO 1.5 (1.0-2.2); ALKALINE PHOSPHATASE 56 IU/L (42-121); ALT ALANINE AMINOTRANSFERASE 29 IU/L (10-60); AST ASPARTATE AMINOTRANSFERASE 22 IU/L (10-42); BILIRUBIN,TOTAL 0.7 mg/dL (0.2-1.0); BUN - BLOOD UREA NITROGEN 16 mg/dL (6-20); CALCIUM 10.1 mg/dL (8.5-10.3); CARBON DIOXIDE - CO2 28 mmol/L (21-32); CHLORIDE 105 mmol/L (101-111); CHOL/HDL RATIO 2.2 (<4.4); CHOLESTEROL 128 mg/dL; CK- CREATINE KINASE 91 IU/L (22-269); CREATININE 0.6 mg/dL (0.4-1.0); GFR - MDRD 120 (>89); GLUCOSE 132 mg/dL (70-100); HDL CHOLESTEROL 59 mg/dL; LDL CHOLESTEROL,CALCULATED 56 mg/dL; LDL/HDL RATIO 0.9 (<4.4); POTASSIUM 3.6 mmol/L (3.5-5.0); SODIUM 141 mmol/L (135-145); TOTAL PROTEIN 7.3 g/dL (6.7-8.2); TRIGLYCERIDES 67 mg/dL; VLDL CHOLESTEROL 13 mg/dL
[2021-09-27 13:28] LABS: ESTIMATED AVERAGE GLUCOSE 157 mg/dL (70-100); HEMOGLOBIN A1c% 7.1 % (4.27-6.07)
== END 2021-09-27 11:19 | disposition home or self-care (01) ==
LOC: LAB 11:18
PROVIDERS: ATTEND Internal Medicine
DX: Z00.00 Encounter for general adult medical examination without abnormal findings (principal); I63.9 Cerebral infarction, unspecified; E11.9 Type 2 diabetes mellitus without complications; Z86.010 Personal history of colon polyps; E78.5 Hyperlipidemia, unspecified; I10 Essential (primary) hypertension; I77.9 Disorder of arteries and arterioles, unspecified
CPT/HCPCS: 36415; 80053; 80061; 82550; 83036; 83721; 84443; 85025

== ENCOUNTER 2021-10-30 13:11 | Outpatient (CLI) | payer MEDICARE, MEDICAID ==
--- NOTE | 2021-10-31 11:09 | Mammography Report ---
BILATERAL DIGITAL DIAGNOSTIC MAMMOGRAM 3D/2D: 10/30/2021 CLINICAL: Patient returns for a 6 month follow up of the right breast. Comparison is made to exams dated: 10/25/2020 mammogram, 07/17/2018 mammogram - [facility], and 06/19/2015 mammogram - [facility]. There are scattered areas of fibroglandular density in both breasts (category b / 25%-50% glandular t issue). Mammograms are stable. There is a stable 0.6 cm oval cyst in the right breast at 9 o'clock posterior depth 9 cm from the nip ple. There also is a focal asymmetry with coarse calcification in the right breast at 7 o'clock middle dep th. This is not significantly changed. No other significant masses, calcifications, or other findings are seen in either breast. IMPRESSION: INCOMPLETE: NEEDS ADDITIONAL IMAGING EVALUATION The 0.6 cm oval cyst in the right breast at 9 o'clock posterior depth is stable. The focal asymmetry in the right breast at 7 o'clock middle depth is also stable. An ultrasound is recommended to document stability. This was performed immediately following this ex am. Based on the Tyrer Cuzick model (a risk assessment model) the patients lifetime risk is 3.5% and her 10 year risk is 2.0%. According to the ACR, ACS, and NCCN guidelines, an annual breast MRI exam skyler g with mammogram is recommended if the patients lifetime risk is 20% or greater. This exam was interpreted at Station ID: [id number]. NOTE: For mammograms, a report in lay terms will be sent to the patient. Approximately 15% of breast malignancies will not be visualized mammographically. In the management of a palpable breast mass, a negative mammogram must not discourage biopsy of a clinically suspicious lesion. Electronically Signed By: Ara ledezma/:10/30/2021 14:04:29 ACR BI-RADS Category 0: Incomplete 3340F PARENCHYMAL PATTERN: (A) - The breast(s) demonstrate(s) scattered fibroglandular densities. BI-RADS CATEGORY: (0) - 0 Ultrasound [id number] Immediate follow-up LATERALITY: (B)
--- NOTE | 2021-10-31 11:10 | Ultrasound Report ---
LIMITED ULTRASOUND OF RIGHT BREAST: 10/30/2021 CLINICAL: Patient returns today to evaluate a focal asymmetry in the right breast. Comparison is made to exams dated: 10/30/2021 mammogram, 10/25/2020 ultrasound, 10/25/2020 mammogram, mammogram - [facility], 07/07/2015 ultrasound, and 06/19/2015 mammogram - [facility]. Color flow ultrasound of the right breast 7 o'clock and 9 o'clock regions was performed. Piedra scale images of the real-time examination were reviewed. There is an oval cluster of cysts in the right breast at 9 o'clock posterior depth. This abnormality is more prominent. Color flow imaging demonstrates that there is no vascularity present. There also is a 1.4 cm x 0.8 cm x 0.8 cm mass in the right breast at 7 o'clock posterior depth 8 cm f rom the nipple. This mass displays posterior acoustic shadowing. This abnormality is increased in s ize and correlates with mammography findings. There are calcifications as seen mammographically. Co tacho flow imaging demonstrates that there is no vascularity present. Additionally, there is a benign 0.3 cm cyst in the right breast at 7 o'clock anterior depth. This co rrelates as an incidental finding. IMPRESSION: PROBABLY BENIGN The cluster of cysts in the right breast at 9 o'clock posterior depth is consistent with apocrine met aplasia or a complicated cyst and is probably benign. The 1.4 cm x 0.8 cm x 0.8 cm mass in the right breast at 7 o'clock posterior depth most likely is a f ibroadenoma and is probably benign. Follow-up mammogram and ultrasound in 6 months is recommended. The 0.3 cm cyst in the right breast at 7 o'clock anterior depth is consistent with a simple cyst and is benign. A follow-up right mammogram and an ultrasound in 6 months is recommended to demonstrate stability. Findings and recommendations were conveyed to the patient at time of exam. This exam was interpreted at Station ID: [id number]. Electronically Signed By: Ara ledezma/:10/30/2021 14:54:14 Ultrasound BI-RADS: 3 Probably benign BI-RADS CATEGORY: (3) - 3 Mammo and [place] [id number] 6 month follow-up LATERALITY: (R)
== END 2021-10-30 13:12 | disposition home or self-care (01) ==
LOC: DI 13:11
PROVIDERS: ATTEND Internal Medicine
DX: N63.13 Unspecified lump in the right breast, lower outer quadrant (principal); N60.11 Diffuse cystic mastopathy of right breast

== ENCOUNTER 2021-12-04 08:00 | Outpatient (CLI) | payer MEDICARE, MEDICAID ==
[2021-12-04 17:01] LABS: BILIRUBIN,URINE NEGATIVE (NEGATIVE); GLUCOSE, URINE (UA) NEGATIVE (NEGATIVE); KETONES,URINE (UA) NEGATIVE (NEGATIVE); LEUKOCYTE ESTERASE, URINE MODERATE (NEGATIVE); NITRITE,URINE NEGATIVE (NEGATIVE); OCCULT BLOOD,URINE NEGATIVE (NEGATIVE); PH,URINE 6.5 PH (5.0-7.5); PROTEIN,URINE NEGATIVE (NEGATIVE); UROBILINOGEN,URINE 0.2 (NORMAL) E.U./dL (NORMAL)
[2021-12-04 17:04] LABS: CLARITY,URINE CLEAR (CLEAR)
[2021-12-04 17:28] LABS: BACTERIA,URINE Rare /HPF (None Seen); RBC,URINE 0-5 /HPF (0-5); SQUAMOUS EPITHELIAL CELL,UR FEW Squamous (<= Few)
== END 2021-12-04 23:59 | disposition home or self-care (01) ==
LOC: LAB.R 08:00
PROVIDERS: ATTEND Internal Medicine
DX: R39.9 Unspecified symptoms and signs involving the genitourinary system (principal)
CPT/HCPCS: 81001; 81003; 87086

== ENCOUNTER 2022-07-19 08:54 | Outpatient (CLI) | payer MEDICARE, MEDICAID ==
--- NOTE | 2022-07-22 12:54 | Mammography Report ---
UNILATERAL RIGHT DIGITAL DIAGNOSTIC MAMMOGRAM 3D/2D: 07/19/2022 CLINICAL: Patient returns for a 6 month follow up of the right breast. Comparison is made to exams dated: 10/30/2021 mammogram, 10/25/2020 mammogram, 07/17/2018 mammogram, an d 10/30/2021 ultrasound - [facility]. There are scattered areas of fibroglandular density in the right breast (category b / 25%-50% glandul ar tissue). There is an oval cyst in the right breast at 9 o'clock posterior depth. This is less prominent. There also is a focal asymmetry with coarse calcifications in the right breast at 7 o'clock middle de pth. This is not significantly changed. No other significant masses or calcifications are seen in the breast. IMPRESSION: INCOMPLETE: NEEDS ADDITIONAL IMAGING EVALUATION The oval cyst in the right breast at 9 o'clock posterior depth is indeterminate. An ultrasound is re commended. The focal asymmetry in the right breast at 7 o'clock middle depth is indeterminate. An ultrasound is recommended. Based on the Tyrer Cuzick model (a risk assessment model) the patients lifetime risk is 3.5% and her 10 year risk is 2.0%. According to the ACR, ACS, and NCCN guidelines, an annual breast MRI exam skyler g with mammogram is recommended if the patients lifetime risk is 20% or greater. This exam was interpreted at Station ID: [id number]. NOTE: For mammograms, a report in lay terms will be sent to the patient. Approximately 15% of breast malignancies will not be visualized mammographically. In the management of a palpable breast mass, a negative mammogram must not discourage biopsy of a clinically suspicious lesion. Electronically Signed By: Rome newell/joshua:07/19/2022 12:51:29 ACR BI-RADS Category 0: Incomplete 3340F PARENCHYMAL PATTERN: (A) - The breast(s) demonstrate(s) scattered fibroglandular densities. BI-RADS CATEGORY: (0) - 0 Ultrasound [id number] Immediate follow-up LATERALITY: (R)
--- NOTE | 2022-07-22 12:54 | Ultrasound Report ---
LIMITED ULTRASOUND OF RIGHT BREAST: 07/19/2022 CLINICAL: Patient returns for a 6 month follow up of the right breast. Comparison is made to exams dated: 07/19/2022 mammogram, 10/30/2021 ultrasound, 10/30/2021 mammogram, ultrasound, 10/25/2020 mammogram, and 07/17/2018 mammogram - [facility]. Color flow and real-time ultrasound of the right breast 7 o'clock and 9 o'clock regions were performe d. Piedra scale images of the real-time examination were reviewed. There is a 1 cm x 0.9 cm x 1 cm mass in the right breast at 7 o'clock posterior depth 8 cm from the n ipple. This mass displays posterior acoustic shadowing. This abnormality is not significantly morgan ed and correlates with mammography findings. There are calcifications as seen mammographically. Col or flow imaging demonstrates that there is no vascularity present. There also is a stable benign 0.3 cm cyst in the right breast at 7 o'clock anterior depth. This debra elates as an incidental finding. The a cluster of oval cysts in the right breast at 9 o'clock posterior depth is no longer seen. IMPRESSION: PROBABLY BENIGN The 1 cm x 0.9 cm x 1 cm mass in the right breast at 7 o'clock posterior depth most likely is a fibro adenoma and is probably benign. The stable 0.3 cm cyst in the right breast at 7 o'clock anterior depth is consistent with a simple cy st and is benign. A follow-up diagnostic mammogram and right breast ultrasound in 6 months is recommended to demonstrat e 2-year stability. This exam was interpreted at Station ID: [id number]. Electronically Signed By: Rome Sheldon M.D. ar/:07/19/2022 12:54:15 Ultrasound BI-RADS: 3 Probably benign BI-RADS CATEGORY: (3) - 3 Mammo and [place] [id number] 6 month follow-up LATERALITY: (B)
== END 2022-07-19 08:55 | disposition home or self-care (01) ==
LOC: DI 08:54
PROVIDERS: ATTEND Internal Medicine
DX: R92.8 Other abnormal and inconclusive findings on diagnostic imaging of breast (principal); N60.01 Solitary cyst of right breast

== ENCOUNTER 2022-10-04 10:55 | Outpatient (CLI) | payer MEDICARE, MEDICAID ==
[2022-10-04 11:15] LABS: BASOPHILS # (AUTO) 0.1 10^3/uL (0.0-0.1); BASOPHILS % (AUTO) 0.6 %; EOSINOPHILS # (AUTO) 0.2 10^3/uL (0.0-0.7); EOSINOPHILS % (AUTO) 1.9 %; HCT - HEMATOCRIT 39.5 % (37.0-47.0); HGB - HEMOGLOBIN 12.6 g/dL (12.0-16.0); LYMPHOCYTES # (AUTO) 1.5 10^3/uL (1.5-3.5); LYMPHOCYTES % (AUTO) 16.3 %; MEAN CORPUSCULAR HEMOGLOBIN 30.2 pg (27.0-31.0); MEAN CORPUSCULAR HGB CONC 31.9 g/dL (32.0-36.0); MEAN CORPUSCULAR VOLUME 94.7 fL (81.0-99.0); MEAN PLATELET VOLUME 10.1 fL (7.9-10.8); MONOCYTES # (AUTO) 0.4 10^3/uL (0.0-1.0); NEUTROPHILS # (AUTO) 6.9 10^3/uL (1.5-6.6); PLT - PLATELET COUNT 254 10^3/uL (130-450); RED BLOOD COUNT 4.17 10^6/uL (4.20-5.40); RED CELL DISTRIBUTION WIDTH 12.8 % (12.0-15.0); WHITE BLOOD COUNT 8.9 x10^3/uL (4.8-10.8)
[2022-10-04 11:26] LABS: ALBUMIN 4.5 g/dL (3.2-5.5); ALBUMIN/GLOBULIN RATIO 1.7 (1.0-2.2); ALKALINE PHOSPHATASE 57 IU/L (42-121); ALT ALANINE AMINOTRANSFERASE 19 IU/L (10-60); AST ASPARTATE AMINOTRANSFERASE 16 IU/L (10-42); BILIRUBIN,TOTAL 0.5 mg/dL (0.2-1.0); BUN - BLOOD UREA NITROGEN 13 mg/dL (6-20); CALCIUM 9.9 mg/dL (8.5-10.3); CARBON DIOXIDE - CO2 32 mmol/L (21-32); CHLORIDE 105 mmol/L (101-111); CHOL/HDL RATIO 1.9 (<4.4); CHOLESTEROL 141 mg/dL; CREATININE 0.7 mg/dL (0.6-1.3); GFR - MDRD 100 (>89); GLUCOSE 125 mg/dL (74-104); HDL CHOLESTEROL 73 mg/dL; LDL CHOLESTEROL,CALCULATED 51 mg/dL; LDL/HDL RATIO 0.7 (<4.4); POTASSIUM 3.6 mmol/L (3.5-4.5); SODIUM 140 mmol/L (135-145); TOTAL PROTEIN 7.2 g/dL (6.4-8.9); TRIGLYCERIDES 83 mg/dL (48-352); VLDL CHOLESTEROL 17 mg/dL
[2022-10-04 11:29] LABS: MICROALBUM/CREATININE RATIO,UR 18.4 ug/mg (<30.0); MICROALBUMIN,URINE 0.7 mg/dL
[2022-10-04 11:43] LABS: THYROID STIMULATING HORMONE 0.59 uIU/mL (0.34-5.60)
[2022-10-04 11:49] LABS: ESTIMATED AVERAGE GLUCOSE 140 mg/dL (70-100); HEMOGLOBIN A1c% 6.5 % (4.27-6.07)
== END 2022-10-04 10:56 | disposition home or self-care (01) ==
LOC: LAB 10:55
PROVIDERS: ATTEND Internal Medicine
DX: Z00.00 Encounter for general adult medical examination without abnormal findings (principal); G56.00 Carpal tunnel syndrome, unspecified upper limb; I63.9 Cerebral infarction, unspecified; R25.2 Cramp and spasm; E11.9 Type 2 diabetes mellitus without complications; Z86.010 Personal history of colon polyps; E78.5 Hyperlipidemia, unspecified; I10 Essential (primary) hypertension; I77.9 Disorder of arteries and arterioles, unspecified; N95.1 Menopausal and female climacteric states
CPT/HCPCS: 36415; 80053; 80061; 82043; 82570; 82607; 83036; 83721; 84443; 85025

== ENCOUNTER 2022-11-29 09:25 | Outpatient (CLI) | payer MEDICARE, MEDICAID ==
--- NOTE | 2022-11-29 21:07 | DEXA Report ---
PROCEDURE: Dexa Spine and/or Hip INDICATIONS: POSET MENOPAUSAL TECHNIQUE: Dual energy x-ray absorptiometry (DEXA) was performed in the regions detailed below. COMPARISON: None. FINDINGS: Lumbar Spine: Bone Mineral Density 1.648 g/cm/cm,T score 3.9. Previously 3.6 Left Femoral Neck: Bone Mineral Density 0.942 g/cm/cm, T score -0.7. Previously -0.6 Left Hip: Bone Mineral Density 1.072 g/cm/cm,T score 0.5. Previously 0.6 (T score greater or equal to -1.0: NORMAL) (T score from -1.1 to -2.4: OSTEOPENIA) (T score less than or equal to -2.5 to: OSTEOPOROSIS) IMPRESSION: Normal bone mineral density Patients with diagnosis of osteoporosis or osteopenia should have regular bone mineral density assess ment. For those eligible for Medicare, routine testing is allowed once every 2 years. Testing frequ ency can be increased for patients who have rapidly progressing disease or for those who are receivin g medical therapy to restore bone mass. Reviewed by: Jamal Myers MD on 11/29/2022 8:06 PM CONCHITA Approved by: Jamal Myers MD on 11/29/2022 8:06 PM CONCHITA Station ID: [id number]
== END 2022-11-29 09:26 | disposition home or self-care (01) ==
LOC: DI 09:25
PROVIDERS: ATTEND Internal Medicine
DX: Z78.0 Asymptomatic menopausal state (principal)

== ENCOUNTER 2023-03-07 10:14 | Outpatient (CLI) | payer MEDICARE, MEDICAID ==
--- NOTE | 2023-03-10 12:55 | Mammography Report ---
BILATERAL DIGITAL DIAGNOSTIC MAMMOGRAM 3D/2D: 03/07/2023 CLINICAL: Patient returns for a 6 month follow up of the right breast, due for bilateral exam. Comparison is made to exams dated: 07/19/2022 mammogram, 10/30/2021 mammogram, 10/25/2020 mammogram, mammogram - [facility], and [facility]/19/[facility] There are scattered areas of fibroglandular density in both breasts (category b / 25%-50% glandular t issue). There is a focal asymmetry with coarse calcifications in the right breast at 7 o'clock middle depth. This is not significantly changed. No other significant masses, calcifications, or other findings are seen in either breast. IMPRESSION: INCOMPLETE: NEEDS ADDITIONAL IMAGING EVALUATION The focal asymmetry in the right breast is indeterminate. An ultrasound is recommended. Based on the Tyrer Cuzick model (a risk assessment model) the patients lifetime risk is 3.3% and her 10 year risk is 2.1%. According to the ACR, ACS, and NCCN guidelines, an annual breast MRI exam sykler g with mammogram is recommended if the patients lifetime risk is 20% or greater. This exam was interpreted at Station ID: [id number]. NOTE: For mammograms, a report in lay terms will be sent to the patient. Approximately 15% of breast malignancies will not be visualized mammographically. In the management of a palpable breast mass, a negative mammogram must not discourage biopsy of a clinically suspicious lesion. Electronically Signed By: Velasquez Kraft M.D. lc/:03/07/2023 11:16:35 ACR BI-RADS Category 0: Incomplete 3340F PARENCHYMAL PATTERN: (A) - The breast(s) demonstrate(s) scattered fibroglandular densities. BI-RADS CATEGORY: (0) - 0 Ultrasound [id number] Immediate follow-up LATERALITY: (B)
--- NOTE | 2023-03-10 12:55 | Ultrasound Report ---
LIMITED ULTRASOUND OF RIGHT BREAST: 03/07/2023 CLINICAL: Patient returns today to evaluate a focal asymmetry in the right breast. Comparison is made to exams dated: 03/07/2023 mammogram, 07/19/2022 ultrasound, 07/19/2022 mammogram, ultrasound, 10/30/2021 mammogram, and 10/25/2020 ultrasound - [facility]. Color flow ultrasound of the right breast 7 o'clock region was performed. Piedra scale images of the r eal-time examination were reviewed. There is a benign 1.1 cm x 0.7 cm x 0.9 cm mass in the right breast at 7 o'clock posterior depth 8 cm from the nipple. This mass displays posterior acoustic shadowing. This abnormality is not signific antly changed and correlates with mammography findings. There are calcifications as seen mammographi jb. Color flow imaging demonstrates that there is no vascularity present. IMPRESSION: BENIGN There is no sonographic evidence of malignancy. 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 2 years stable. Return to annual mammogram screening schedule is recommended. This exam was interpreted at Station ID: [id number]. Electronically Signed By: Velasquez Kraft M.D. lc/:03/07/2023 11:20:30 Ultrasound BI-RADS: 2 Benign BI-RADS CATEGORY: (2) - 2 RECOMMENDATION: (ANNUAL) - Recommend routine annual screening mammography. [id number] return to screening LATERALITY: (B)
== END 2023-03-07 10:15 | disposition home or self-care (01) ==
LOC: DI 10:14
PROVIDERS: ATTEND Internal Medicine
DX: R92.8 Other abnormal and inconclusive findings on diagnostic imaging of breast (principal); R92.323 Mammographic fibroglandular density, bilateral breasts

== ENCOUNTER 2023-05-05 10:52 | Outpatient (CLI) | payer MEDICARE, MEDICAID ==
[2023-05-05 11:19] LABS: CALCIUM 10.1 mg/dL (8.5-10.3); CREATININE 0.8 mg/dL (0.6-1.3); POTASSIUM 4.5 mmol/L (3.5-4.5)
[2023-05-05 13:06] LABS: ESTIMATED AVERAGE GLUCOSE 140 mg/dL (70-100); HEMOGLOBIN A1c% 6.5 % (4.27-6.07)
== END 2023-05-05 10:53 | disposition home or self-care (01) ==
LOC: LAB 10:52
PROVIDERS: ATTEND Internal Medicine
DX: E11.9 Type 2 diabetes mellitus without complications (principal); Z79.899 Other long term (current) drug therapy; L73.9 Follicular disorder, unspecified; I88.9 Nonspecific lymphadenitis, unspecified; L81.9 Disorder of pigmentation, unspecified
CPT/HCPCS: 36415; 80048; 82607; 83036

== ENCOUNTER 2023-05-14 10:30 | Outpatient (CLI) | payer MEDICARE, MEDICAID ==
--- NOTE | 2023-05-14 23:39 | Ultrasound Report ---
PROCEDURE: Soft Tissue Head or Neck INDICATIONS: LYMPHADENOPATHY TECHNIQUE: Real-time scanning was performed of the thyroid gland, with image documentation. COMPARISON: None FINDINGS: Normal left-sided cervical chain lymph node identified over the area of palpable concern. This normal lymph node demonstrates normal reniform morphology with uniform cortical thickness and central fatty hilum. Incidentally noted subcentimeter cysts in the left thyroid lobe. IMPRESSION: Palpable area of concern correlates with a normal appearing cervical chain lymph node. Reviewed by: Yohan Cordoba MD on 05/14/2023 10:38 PM [facility] Approved by: Yohan Cordoba MD on 05/14/2023 10:38 PM [facility] Station ID: [id number]
== END 2023-05-14 10:31 | disposition home or self-care (01) ==
LOC: DI 10:30
PROVIDERS: ATTEND Internal Medicine
DX: R59.1 Generalized enlarged lymph nodes (principal)

== ENCOUNTER 2023-10-08 11:05 | Outpatient (CLI) | payer MEDICARE, MEDICAID ==
[2023-10-08 11:20] LABS: BASOPHILS % (AUTO) 0.5 %; EOSINOPHILS # (AUTO) 0.2 10^3/uL (0.0-0.7); EOSINOPHILS % (AUTO) 2.1 %; HCT - HEMATOCRIT 38.9 % (37.0-47.0); HGB - HEMOGLOBIN 12.4 g/dL (12.0-16.0); LYMPHOCYTES # (AUTO) 1.5 10^3/uL (1.5-3.5); LYMPHOCYTES % (AUTO) 17.4 %; MEAN CORPUSCULAR HEMOGLOBIN 29.6 pg (27.0-31.0); MEAN CORPUSCULAR HGB CONC 31.9 g/dL (32.0-36.0); MEAN CORPUSCULAR VOLUME 92.8 fL (81.0-99.0); MEAN PLATELET VOLUME 9.7 fL (7.9-10.8); MONOCYTES # (AUTO) 0.4 10^3/uL (0.0-1.0); MONOCYTES % (AUTO) 4.2 %; NEUTROPHILS # (AUTO) 6.5 10^3/uL (1.5-6.6); NEUTROPHILS % (AUTO) 75.6 %; PLT - PLATELET COUNT 320 10^3/uL (130-450); RED BLOOD COUNT 4.19 10^6/uL (4.20-5.40); RED CELL DISTRIBUTION WIDTH 12.8 % (12.0-15.0); WHITE BLOOD COUNT 8.6 x10^3/uL (4.8-10.8)
[2023-10-08 11:34] LABS: ALBUMIN 4.6 g/dL (3.2-5.5); ALBUMIN/GLOBULIN RATIO 1.5 (1.0-2.2); ALKALINE PHOSPHATASE 58 IU/L (42-121); ALT ALANINE AMINOTRANSFERASE 22 IU/L (10-60); AST ASPARTATE AMINOTRANSFERASE 15 IU/L (10-42); BILIRUBIN,TOTAL 0.5 mg/dL (0.2-1.0); BUN - BLOOD UREA NITROGEN 13 mg/dL (6-20); CALCIUM 10.4 mg/dL (8.5-10.3); CARBON DIOXIDE - CO2 30 mmol/L (21-32); CHLORIDE 104 mmol/L (101-111); CHOL/HDL RATIO 2.1 (<4.4); CHOLESTEROL 120 mg/dL; CREATININE 0.6 mg/dL (0.6-1.3); GFR - MDRD 119 (>89); GLUCOSE 161 mg/dL (74-104); HDL CHOLESTEROL 57 mg/dL; LDL CHOLESTEROL,CALCULATED 41 mg/dL; LDL/HDL RATIO 0.7 (<4.4); POTASSIUM 4.2 mmol/L (3.5-4.5); SODIUM 140 mmol/L (135-145); TOTAL PROTEIN 7.6 g/dL (6.4-8.9); TRIGLYCERIDES 109 mg/dL; VLDL CHOLESTEROL 22 mg/dL
[2023-10-08 11:37] LABS: ESTIMATED AVERAGE GLUCOSE 148 mg/dL (70-100); HEMOGLOBIN A1c% 6.8 % (4.27-6.07)
[2023-10-08 11:47] LABS: CREATININE,URINE 85.2 mg/dL; MICROALBUM/CREATININE RATIO,UR 17.6 ug/mg (<30.0); MICROALBUMIN,URINE 1.5 mg/dL
[2023-10-08 11:49] LABS: THYROID STIMULATING HORMONE 0.72 uIU/mL (0.34-5.60)
== END 2023-10-08 11:06 | disposition home or self-care (01) ==
LOC: LAB 11:05
PROVIDERS: ATTEND Internal Medicine
DX: Z00.00 Encounter for general adult medical examination without abnormal findings (principal); I63.9 Cerebral infarction, unspecified; E11.9 Type 2 diabetes mellitus without complications; Z86.010 Personal history of colon polyps; E78.5 Hyperlipidemia, unspecified; I10 Essential (primary) hypertension; H61.23 Impacted cerumen, bilateral; I77.9 Disorder of arteries and arterioles, unspecified; Z86.16 Personal history of COVID-19
CPT/HCPCS: 36415; 80053; 80061; 82043; 82570; 82607; 83036; 83721; 84443; 85025